=== PATIENT | female | born 1965 | race Caucasian/White ===

== ENCOUNTER 2022-08-08 11:49 | Inpatient (IN) | payer BC ==
[~2022-08-08] VITALS: Ht 162.6 cm; Wt 56.2 kg
[2022-08-08] MEDS ORDERED: IV NS 0.9% 1,000 ML BAG IV ONE (12:00)
--- NOTE | 2022-08-08 12:00 | NUR ---
BIBRA88 FROM HOME FOR PALITATIONS AND COFFEE GROUND EMESIS HR 170 ON SCENE, 12MG + 12MG ADENOSINE GIVEN BY EMS. PLACED IN BED, AAOX4, BREATHING EVEN AND UNLABORED SATURATING AT 94%RA, ATTACHED TO MONITOR SHOWS SINUS TACH. IA- 140
--- NOTE | 2022-08-08 12:10 | NUR ---
DUPLICATOR PUNCH SET UP OPERATOR AT BEDSIDE
--- NOTE | 2022-08-08 12:40 | NUR ---
X-RAY TECH AT BEDSIDE
[2022-08-08] MEDS ORDERED: LORAZEPAM INJ 2 MG/ML VIAL IV ONE (13:30)
[2022-08-08] MEDS ORDERED: PANTOPRAZOLE 80 MG in IV NS 0.9% 500 ML IV ONE (13:30)
--- NOTE | 2022-08-08 13:30 | NUR ---
MOVE SHEET SUBMITTED.
--- NOTE | 2022-08-08 13:30 | NUR ---
SWAB FOR COVID19 SENT TO LAB
[2022-08-08] MEDS ORDERED: LORAZEPAM INJ 2 MG/ML VIAL ONE (13:34)
[2022-08-08 13:40] LABS: ALANINE AMINOTRANSFERASE 27 U/L (12-78); ALBUMIN 3.1 g/dL (3.4-5.0); ALKALINE PHOSPHATASE 151 U/L (46-116); ASPARTATE AMINOTRANSFERASE 96 U/L (15-37); BILIRUBIN,DIRECT 0.2 mg/dL (0.0-0.2); BILIRUBIN,TOTAL 0.7 mg/dL (0.2-1.0); CARBON DIOXIDE 21 mmol/L (21-32); CHLORIDE 106 mmol/L (98-107); CREATININE 0.9 mg/dL (0.6-1.3); GLUCOSE 98 mg/dL (74-106); LIPASE 32 U/L (73-393); POTASSIUM 4.1 mmol/L (3.5-5.1); SODIUM SERUM 140 mmol/L (136-145); TOTAL PROTEIN, SERUM 6.9 g/dL (6.4-8.2); UREA NITROGEN, BLOOD 19 mg/dL (7-18)
[2022-08-08 13:56] LABS: BASOPHILS # (AUTO) 0.2 K/uL (0.0-0.2); BASOPHILS % (AUTO) 0.8 % (0.0-2.0); EOSINOPHILS % (AUTO) 0.1 % (0.0-6.0); HEMATOCRIT 40 % (33-45); HEMOGLOBIN 12.7 g/dL (11.5-14.8); LYMPHOCYTES # (AUTO) 0.4 K/uL (0.8-4.8); LYMPHOCYTES % (AUTO) 1.4 % (20.0-44.0); MEAN CORPUSCULAR HGB CONC 32 g/dl (31.0-36.0); MEAN CORPUSCULAR VOLUME 101 fL (82-100); MONOCYTES # (AUTO) 1.3 K/uL (0.1-1.30); MONOCYTES % (AUTO) 4.8 % (2.0-12.0); NEUTROPHILS % (AUTO) 92.9 % (43.0-81.0); PLATELET COUNT (AUTO) 343 K/uL (150-450); RED BLOOD CELL COUNT(AUTO) 3.95 MIL/uL (4.0-5.2); WHITE BLOOD COUNT (AUTO) 26.9 K/uL (4.3-11.0)
--- NOTE | 2022-08-08 13:58 | NUR ---
PATIENT TAKEN TO CT VIA MILLI
[2022-08-08] MEDS ORDERED: IV NS 0.9% 250 ML IV ONE (14:01)
[2022-08-08] MEDS ORDERED: IOHEXOL-350 100 ML VIAL IV ONE (14:01)
[2022-08-08] MEDS ORDERED: CEFTRIAXONE 1GM BAG (ER ONLY) 1 GM/50 ML PIGGYBACK IV ONE (14:30)
[2022-08-08] MEDS ORDERED: IV NS 0.9% 1,000 ML IV ONE (14:30)
[2022-08-08] MEDS ORDERED: DOXYCYCLINE 100 MG in IV D5W 100 ML IV ONE (14:30)
[2022-08-08] MEDS ORDERED: BUDE3CAP8 PO (15:03)
[2022-08-08] MEDS ORDERED: LIDO30AD10 TP (15:03)
[2022-08-08] MEDS ORDERED: BACL20TA PO (15:03)
[2022-08-08] MEDS ORDERED: TOPI50TA24 PO (15:03)
[2022-08-08] MEDS ORDERED: HYDR-3976 PO (15:03)
[2022-08-08] MEDS ORDERED: SERT100T PO (15:03)
[2022-08-08] MEDS ORDERED: CLON1TAB12 PO (15:03)
[2022-08-08] MEDS ORDERED: ESOM20CA PO (15:03)
--- NOTE | 2022-08-08 15:35 | NUR ---
[facility] CALLED SHIPMASTER PAGED.
--- NOTE | 2022-08-08 15:57 | NUR ---
ROOM ASSIGNED 102. ADMITTING AWARE.
[2022-08-08] MEDS ORDERED: OCTREOTIDE 50 MCG/ML AMPUL SQ ONE (16:00)
[2022-08-08] MEDS ORDERED: OCTREOTIDE 100 MCG/ML VIAL ONE (16:13)
--- NOTE | 2022-08-08 16:47 | NUR ---
report given to nurse Maher for prince
--- NOTE | 2022-08-08 17:31 | NUR ---
REPORT GIVEN TO JOVANY DRAFTER ELECTRONIC ROOM 259 FOR EVARISTO
--- NOTE | 2022-08-08 17:35 | NUR ---
PATIENT TRANSFERED AND ADMITTED PER ACLS PROTOCOL
--- NOTE | 2022-08-08 17:45 | NUR ---
ICU/RN PT ADMITED FROM ER,FROM HOME.HAD SVT,COFFEE GROUND EMESIS IN ER.HAS SEPSIS,PNA.PE.R/O OF GI BLEED.ON PROTONIX DRIP.HR -110-120 BPM .ON 2L N/C SAT O2-95%.AFEBRILE.NO PAIN REPORTED AT THIS TIME.LEFT IJ IV WITH PROTONIX DRIP.LABS REVIEW.PT IS VERY WEAK.SLEEPY.FAMILY AT BEDSIDE.
[2022-08-08 18:00] VITALS: BP_SYST 87; BP_SYST 94; BP_DIAS 55; BP_DIAS 56
[2022-08-08] MEDS ORDERED: ONDANSETRON HCL/PF 4 MG/2 ML VIAL IVP PRN (18:00)
[2022-08-08] MEDS ORDERED: Z GUARD REMEDY 4 OZ OINT TP PRN (18:00)
[2022-08-08] MEDS ORDERED: MAGNESIUM HYDROXIDE 30 ML UDC PO PRN (18:00)
[2022-08-08] MEDS ORDERED: MAG HYDROX/AL HYDROX/SIMETH 30 ML UDC PO PRN (18:00)
[2022-08-08] MEDS: IV NS 0.9% 1,000 ML IV PRN (18:17)
[2022-08-08] MEDS ORDERED: HEPARIN INFUSION/D5W 500 ML IV PRN (18:30)
--- NOTE | 2022-08-08 18:45 | NUR ---
ICU/RN DR NEIL SEEN THE PT .HEPARIN DRIP NON ACS PROTOCOL ORDERED.
[2022-08-08 19:00] VITALS: BP 93/49
[2022-08-08] MEDS ORDERED: NOREPINEPHRINE 8 MG in IV NS 0.9% 242 ML IV PRN (19:00)
[2022-08-08] MEDS ORDERED: NOREPINEPHRINE 8 MG in IV D5W 242 ML IV PRN (19:30)
[2022-08-08] MEDS ORDERED: HEPARIN SODIUM, PORCINE 5000 UNITS/1 ML VIAL IV ONE (19:30)
[2022-08-08] MEDS ORDERED: NOREPINEPHRINE 8 MG in IV D5W 492 ML IV PRN (19:30)
[2022-08-08 20:00] VITALS: BP 95/52
[2022-08-08] MEDS: CEFEPIME 1 GM in IV D5W 50 ML IV SCH (20:04)
[2022-08-08] MEDS: VANCOMYCIN 0.75 GM in IV D5W 250 ML IV SCH (20:34)
--- NOTE | 2022-08-08 20:44 | NUR ---
ICU/FURNITURE PAINTER @1939-CALLED NURSING SUP. ABOUT MIDLINE PLACEMENT, WOULD LIKE MIDLINE PLACED FIRST BEFORE STARTING HEPARIN DRIP. @2024-MIDLINE NURSE HERE TO PLACE LINE @2034-HEPARIN DRIP STARTED BY CAR LUBRICATOR NURSE. NEXT PTT IS IN 6 HRS
--- NOTE | 2022-08-08 20:55 | NUR ---
ICU/INTERNAL INVESTIGATOR CALLED THE SCALE AGENT ABOUT KEEPING THE PROTONIX DRIP GOING THIS WAS AN ER ORDER THERE IS NO DOCUMENTATION FROM MD IN NOTES TO KEEP GOING
[2022-08-08 21:00] VITALS: BP 91/57
--- NOTE | 2022-08-08 21:30 | NUR ---
ICU/PHOTOGRAPHIC SUPERVISOR PT'S AT BEDSIDE FOR AWHILE THEN WENT HOME.
[2022-08-08 22:00] VITALS: BP 93/54
--- NOTE | 2022-08-08 22:34 | NUR ---
ICU/BAKED AND GRAPHITE INSPECTOR PT VOIDED, COLLECTED UA AND URINE DRUG SCREEN. COLLECTED AND SENT TO LAB
[2022-08-08 23:00] VITALS: BP 91/57
[2022-08-09] VITALS (15 sets, daily range): BP systolic 100–127; BP diastolic 60–84
[2022-08-09 00:19] LABS: BILIRUBIN,URINE NEGATIVE (NEGATIVE); COLOR,URINE YELLOW (YELLOW); LEUKOCYTE ESTERASE ,URINE NEGATIVE (NEGATIVE); NITRITE, URINE POSITIVE (NEGATIVE); PH,URINE 5.5 (5.0-8.0); PROTEIN,URINE NEGATIVE (NEGATIVE); UGLUCOSE NEGATIVE (NEGATIVE); UROBILINOGEN,URINE 0.2 EU/dL (0.2)
[2022-08-09 00:59] LABS: BACTERIA,URINE Few /HPF (None Seen); SQUAMOUS EPITHELIAL CELL,UR Few /HPF (None Seen); WBC,URINE 0-2 /HPF (0-3)
--- NOTE | 2022-08-09 01:27 | NUR ---
ICU/PATTERNMAKER GRADER @2230-PT WOKE UP, STARTED ASKING FOR PAIN MEDICATION, CRYING WAS DIFFICULT TO UNDERSTAND. TRIED TO GIVE A LIDOCAINE PATCH HOWEVER PT REFUSED. @2320-PT CALLED TO TAKE HER HOME AMA, SAID NO. PT WANTS HER MEDS. @2330- CALLED ME TO ASK ABOUT WHAT MEDICATION CAN SHE GET. HAD ALREADY CALLED THE MAINTENANCE REPAIRER TO TALK AND ASSESS THE PT FOR WHAT COULD HELP IN THIS PT'S SITUATION. AND EXPLAIN MAINTENANCE REPAIRER WILL ORDER WHATEVER SHE WANTS. @0030-ERICA WAS FINISHING UP AN ADMISSION. THEN SHE WOULD BE UP TO SEE PT. @0100-ERICA SAW PT AND SAID TO GIVE ATIVAN AND THEN MORPHINE. THEN IN MORNING GET A PSYCH CONSULT. @0130-ORDERS RECIEVED AND CARRIED OUT.
[2022-08-09] MEDS ORDERED: LORAZEPAM INJ 2 MG/ML VIAL IV ONE (01:30)
[2022-08-09] MEDS ORDERED: MORPHINE SULFATE INJ 2 MG/ML DISP.SYRIN IV ONE (01:30)
--- NOTE | 2022-08-09 01:36 | NUR ---
ICU/STREET VENDOR ATIVAN GIVEN BY TEXTILES PRINTER NURSE, PT ASKED ABOUT MORPHINE AND WHEN CAN SHE GET IT. CHARGE NURSE SPOKE TO PT.
[2022-08-09] MEDS ORDERED: MORP15TA PO (01:55)
[2022-08-09] MEDS ORDERED: clonazePAM 1 MG TABLET PO ONE (03:30)
[2022-08-09 03:34] LABS: BASOPHILS # (AUTO) 0.1 K/uL (0.0-0.2); BASOPHILS % (AUTO) 0.3 % (0.0-2.0); EOSINOPHILS % (AUTO) 0.1 % (0.0-6.0); HEMATOCRIT 29 % (33-45); HEMOGLOBIN 9.5 g/dL (11.5-14.8); LYMPHOCYTES # (AUTO) 0.6 K/uL (0.8-4.8); LYMPHOCYTES % (AUTO) 2.2 % (20.0-44.0); MEAN CORPUSCULAR HGB CONC 33 g/dl (31.0-36.0); MEAN CORPUSCULAR VOLUME 100 fL (82-100); MONOCYTES # (AUTO) 1.2 K/uL (0.1-1.30); MONOCYTES % (AUTO) 4.3 % (2.0-12.0); NEUTROPHILS # (AUTO) 26.4 K/uL (1.8-8.9); NEUTROPHILS % (AUTO) 93.1 % (43.0-81.0); PLATELET COUNT (AUTO) 243 K/uL (150-450); RED BLOOD CELL COUNT(AUTO) 2.93 MIL/uL (4.0-5.2); WHITE BLOOD COUNT (AUTO) 28.4 K/uL (4.3-11.0)
[2022-08-09 03:57] LABS: ALBUMIN 2.3 g/dL (3.4-5.0); BILIRUBIN,TOTAL 0.6 mg/dL (0.2-1.0); CALCIUM, SERUM 8.2 mg/dL (8.5-10.1); CREATININE 0.5 mg/dL (0.6-1.3); MAGNESIUM 1.7 mg/dL (1.8-2.4); PHOSPHORUS 1.8 mg/dL (2.5-4.9); POTASSIUM 3.7 mmol/L (3.5-5.1); TOTAL PROTEIN, SERUM 5.3 g/dL (6.4-8.2)
--- NOTE | 2022-08-09 07:17 | NUR ---
ICU/COMPUTER PROCESSING SCHEDULER @0619 PT WOKE UP ASKED TO SEE THE DR. SAID THAT THE DR WAS SUPPOSED TO COME SEE HER. TRIED TO EXPLAIN THAT DR WILL COME LATER. THEN PT DEMANDED TO GO TO THE BATHROOM ASKED IF OF FOR A SOTO PT SAID YES. SOTO WAS PLACED. 2500ML CAME OUT. THEN PT YELLED THAT SHE WAS SUPPOSED TO PHYSICAL GO TO THE BATHROOM, EXPLAINED THAT PT IS UNABLE ON HER FEET AND UNABLE TO WALK. PT THEN WENT INTO A RANT ABOUT THE HOSPITAL IS HORRIBLE AND THAT I WAS A "FUCKING BITCH" PT CONTINUED ON FOR 15-20MINUTES. THEN JUST WALKED OUT OF ROOM, MADE CHARGE NURSE AWARE OF THIS . PT IS REQUESTING MORE PAIN MEDICATION, AND OTHER MEDICATIONS WHICH PT TAKES AT HOME. EXPLAIN THAT PT TAKES A LOT OF MEDICATION, EXPRESSED THAT PT SHOULD GO INTO A REHAB. AND THIS HAS GOTTEN OUT OF CONTROL. ENGINEER SPECIALIST SAID SHE DID NOT FEEL COMFORTABLE GIVING PT ALL THESE DIFFERENT MEDICATIONS BECAUSE SHE WOULD LIKE THEM TO VERIFY IF SHE TRULY GETS THESE PRESCRIBED TO HER.
[2022-08-09] MEDS ORDERED: HYDROCODONE/APAP 7.5/325MG 1 EACH TABLET PO PRN (08:00)
[2022-08-09] MEDS: clonazePAM 1 MG TABLET PO SCH ×3 (08:08→17:15)
[2022-08-09] MEDS: MORPHINE SULFATE IR 15 MG TABLET PO SCH ×4 (08:08→20:05)
[2022-08-09] MEDS: CEFEPIME 1 GM in IV D5W 50 ML IV SCH (08:08)
[2022-08-09] MEDS: TOPIRAMATE 100 MG TABLET PO SCH ×2 (08:08→17:14)
[2022-08-09] MEDS: IV NS 0.9% 1,000 ML IV PRN (08:20)
[2022-08-09] MEDS: VANCOMYCIN 0.75 GM in IV D5W 250 ML IV SCH (08:44)
[2022-08-09] MEDS ORDERED: BUDESONIDE 3 MG CAP.SR.24H PO SCH (09:00)
[2022-08-09] MEDS ORDERED: PANTOPRAZOLE 40 MG VIAL IV SCH (09:00)
[2022-08-09] MEDS: LIDOCAINE 5% (PATCH) 1 EA PATCH TP PRN (09:16)
[2022-08-09] MEDS: HYDROCODONE/APAP 5/325MG TABLET PO PRN ×3 (10:21→21:11)
[2022-08-09] MEDS: Magnesium 1GM/D5W 100ML PREMIX 100 ML IV SCH ×2 (10:47→13:44)
--- NOTE | 2022-08-09 11:23 | NUR ---
ICU/RN TALKED TO CARMEN REGARDING PT'S CONDITION.
--- NOTE | 2022-08-09 11:50 | NUR ---
RN NOTE RECEIVED REPORT FOR PATIENT FROM ICU ACCOMPANIED BY JOANNE FORTE.
[2022-08-09] MEDS ORDERED: NEUTRA PHOS 1 POWD.PACKET PO ONE (13:00)
[2022-08-09] MEDS: ACETAMINOPHEN 325 MG TABLET PO PRN (16:34)
[2022-08-09] MEDS: CEFEPIME 2 GM in IV D5W 100 ML IV SCH ×2 (16:34→20:06)
[2022-08-09] MEDS: VANCOMYCIN HCL 0.75 GM in IV D5W 250 ML IV SCH (17:10)
[2022-08-09] MEDS: SERTRALINE HCL 50 MG TABLET PO SCH (17:58)
--- NOTE | 2022-08-09 18:34 | NUR ---
RN CLOSING NOTE PATIENT IN BED ALERT AND ORIENTED X 4. PATIENT IS BREATHING ON NC 2 LPM, WITH 02 SAT OF 100%. IV ACCESS ON RIJ PATENT AND FLUSHED IV ACCESS ON PHIL RUNNING AT 75MLS/HR. ABLE TO MAKE NEEDS KNOWN. WILL ENDORSE CONTINUITY OF CARE TO CUTTING DEPARTMENT SUPERVISOR NURSE
--- NOTE | 2022-08-09 19:00 | NUR ---
RN NOTE Report received from Nellie RUBIO, patient in bed, AAO x 4, in no acute distress, saturation at 99% on 2L via NC, ST on the monitor, HR is 110. IV line at L IJ and PHIL midline patent and flushing, NS infusing at 75 ml/hr. Patient is continent and ambulatory, however, appears restless and keeps asking for her pain medications. Patient insists she only took 2 doses of clonazepam as opposed to three doses per EMAR. Reminded patient to stay on clear liwuid diet per orders. Safety measures in place, bed is locked and at lowest position, HOB elevated, call light within reach of patient. Will continue to monitor and reassess.
[2022-08-09] MEDS: PANTOPRAZOLE 40 MG VIAL IV SCH (20:08)
[2022-08-10 00:07] VITALS: BP 126/82
[2022-08-10] MEDS: VANCOMYCIN HCL 0.75 GM in IV D5W 250 ML IV SCH ×2 (00:12→08:09)
[2022-08-10] MEDS: HYDROCODONE/APAP 5/325MG TABLET PO PRN ×5 (01:14→18:54)
--- NOTE | 2022-08-10 02:52 | NUR ---
RN NOTE Patient very restless, unable to go to sleep. MD was made aware, order received for Clonazepam 1 mg x 1.
[2022-08-10] MEDS ORDERED: clonazePAM 1 MG TABLET PO ONE (03:00)
[2022-08-10 04:00] VITALS: BP 117/79
[2022-08-10] MEDS: CEFEPIME 2 GM in IV D5W 100 ML IV SCH ×3 (04:46→21:03)
--- NOTE | 2022-08-10 04:58 | NUR ---
RN NOTE Patient refused to sign consent for EGD, states she had the same procedure a year ago. Explained to patient importance of this procedure in determining the cause of bleeding. Patient states she wants to speak with MD before she signs consent form. Will endorse to AM shift RN.
[2022-08-10 06:20] LABS: CALCIUM, SERUM 8.5 mg/dL (8.5-10.1); CREATININE 0.5 mg/dL (0.6-1.3); PHOSPHORUS 2.2 mg/dL (2.5-4.9)
[2022-08-10 06:31] LABS: POTASSIUM 2.8 mmol/L (3.5-5.1)
--- NOTE | 2022-08-10 07:15 | NUR ---
RN NOTE AM labs resulted, Critical lab of [facility] 2.MD Sebastián made aware, however, no response received during change of shift. Relayed critical lab to Elinor RUBIO. Pt in bed, VS are wnl, stable on 2L via NC.
--- NOTE | 2022-08-10 07:44 | NUR ---
ICU/RN PT RECEIVED IN BED, AWAKE AND ALERT. PT ON 2L O2 NC WITH SOME LUNG PAIN ON THE RIGHT SIDE. LEFT UA MIDLINE AND LEFT IJ 18G IN PLACE RUNNING NS AT 75MLS/HR. PT COMPLAINING OF SEVERE PAIN, PT EDUCATED ON POC AND PAIN MEDICATION SCHEDULED THIS AM. RN TO BRING SCHEDULED MORNING MEDICATION SOON POSSIBLE. BED LOCKED AND IN LOWEST POSITION, CALL LIGHT WITHIN REACH, 3 SIDE RAILS UP.
--- NOTE | 2022-08-10 07:45 | NUR ---
RN NOTE PT REFUSES BED ALARM AT THIS TIME, STATING IT MAKES HER HEADACHE WORSE AND SHE CAN AMBULATE INDEPENDENTLY. PT EDUCATED ON RISKS OF AMBULATING BY HERSELF AND ASKED TO USE TO CALL LIGHT PRIOR TO GETTING UP
[2022-08-10 08:00] VITALS: BP 124/82
[2022-08-10] MEDS: PANTOPRAZOLE 40 MG VIAL IV SCH ×2 (08:08→16:02)
[2022-08-10] MEDS: MORPHINE SULFATE IR 15 MG TABLET PO SCH ×4 (08:09→21:03)
[2022-08-10] MEDS: clonazePAM 1 MG TABLET PO SCH ×3 (08:09→16:02)
[2022-08-10] MEDS: TOPIRAMATE 100 MG TABLET PO SCH ×2 (08:09→16:02)
[2022-08-10 08:55] LABS: BASOPHILS # (AUTO) 0.1 K/uL (0.0-0.2); BASOPHILS % (AUTO) 0.3 % (0.0-2.0); EOSINOPHILS % (AUTO) 0.3 % (0.0-6.0); HEMATOCRIT 28 % (33-45); LYMPHOCYTES # (AUTO) 0.3 K/uL (0.8-4.8); LYMPHOCYTES % (AUTO) 1.1 % (20.0-44.0); MEAN CORPUSCULAR HGB CONC 32 g/dl (31.0-36.0); MEAN CORPUSCULAR VOLUME 99 fL (82-100); MONOCYTES # (AUTO) 1.1 K/uL (0.1-1.30); MONOCYTES % (AUTO) 4.5 % (2.0-12.0); NEUTROPHILS # (AUTO) 23.2 K/uL (1.8-8.9); NEUTROPHILS % (AUTO) 93.8 % (43.0-81.0); PLATELET COUNT (AUTO) 241 K/uL (150-450); RED BLOOD CELL COUNT(AUTO) 2.79 MIL/uL (4.0-5.2); WHITE BLOOD COUNT (AUTO) 24.7 K/uL (4.3-11.0)
[2022-08-10] MEDS: NEUTRA PHOS 1 POWD.PACKET PO SCH ×2 (09:02→16:03)
[2022-08-10] MEDS: POTASSIUM CHLORIDE 20 MEQ TAB.PRT.SR PO SCH ×5 (09:02→13:41)
[2022-08-10] MEDS ORDERED: VANCOMYCIN 500 MG in IV D5W 100ml IV ONE (09:30)
--- NOTE | 2022-08-10 09:58 | NUR ---
RN NOTE PT REPORTING PAIN AND REQUESTING NORCO, PAIN 11/20. NORCO GIVEN
[2022-08-10] MEDS: BUDESONIDE 3 MG PO SCH (11:03)
[2022-08-10 12:00] VITALS: BP 136/79
[2022-08-10] MEDS: ENSURE CLEAR 237 ML LIQUID (MIX BERRY) PO SCH ×2 (12:02→17:31)
[2022-08-10] MEDS: BACLOFEN (10 MG) 10 MG TABLET PO SCH ×2 (12:02→16:03)
--- NOTE | 2022-08-10 13:30 | NUR ---
RN NOTE PT CALLING FOR HELP, DID NOT USE THE CALL LIGHT. PT STATES SHE TRIPPED ON HER WAY TO THE BATHROOM SHE REFUSED TO USE TO CALL LIGHT TO ASK FOR HELP AND CONTINUES TO REFUSE THE BED ALARM. PT STATES HITTING HER HEAD AND KNEE. NO BRUISE, REDNESS OT INDENTION NOTED. DR. SARY RICHTER, MADE AWARE OF INCIDENT. ORDER RECEIVED FOR HEAD CT, AND FOR PATIENT TO AGREE TO SAFETY MEASURES SHE CAN NOT CONTINUE TO PLACE HERSELF IN DANGER BY REFUSING TO CALL FOR HELP AND REFUSING BED ALARM. PT EDUCATED.
--- NOTE | 2022-08-10 15:00 | NUR ---
ICU/RN PT REQUESTING NORCO FOR HER UNMANAGED PAIN WITH HER SCHEDULED PAIN MEDICATION. NORCO GIVEN
--- NOTE | 2022-08-10 15:45 | NUR ---
RN NOTE PT VERY ANXIOUS AND RESTLESS, REPORTING UNCONTROLLED AND SEVERE PAIN OF 10/10, ACCELERATED BREATHING NOTED. PT PLACED ON 3L O2 NC, RN REMAINED WITH PT UNTIL PAIN MEDICATION DUE.
[2022-08-10 16:00] VITALS: BP 110/69
--- NOTE | 2022-08-10 16:30 | NUR ---
RN NOTE AT BEDSIDE, PT CALM AND COOPERATIVE AT THIS TIME.
[2022-08-10] MEDS: SERTRALINE HCL 50 MG TABLET PO SCH (17:05)
[2022-08-10] MEDS: VANCOMYCIN 1.25 GM in IV D5W 250 ML IV SCH (17:07)
--- NOTE | 2022-08-10 18:55 | NUR ---
RN NOTE PT ASKING FOR NORCO FOR HER HEADACHE, RATE PAIN 7/10. VITAL SIGNS STABLE. NORCO PO GIVEN
--- NOTE | 2022-08-10 19:05 | NUR ---
RN OPENING NOTES RECEIVED PATIENT ON BED, AWAKE, A/O X 3-4. AMBULATORY. PATIENT IS ANXIOUS, MILDLY AGITATED. ON NASAL CANULA @ 3LPM SATING AT 95%. NO S/S OF DISTRESS NOTED. NOTED WITH PHIL MID LINE AND LEFT IJ @ 18, FLUSHED WITH NS NO S/S OF INFILTRATION NOTED. ALL SAFETY PRECAUTION PROVIDED. BED IN LOWEST POSITION, LOCKED. CALL LIGHT WITH IN REACH.
[2022-08-10] MEDS: LIDOCAINE 5% (PATCH) 1 EA PATCH TP PRN (19:38)
[2022-08-10] MEDS: ACETAMINOPHEN 325 MG TABLET PO PRN (19:47)
[2022-08-10] MEDS: diphenhydrAMINE HCL ELIX 25 MG/10 ML UDC PO PRN (19:47)
--- NOTE | 2022-08-10 19:50 | NUR ---
RN NOTES PATIENT NOTED WITH TEMP- 99.7 FAHRENHEIT, COOLING MEASURES PROVIDED, ADMINISTER ACETAMINOPHEN 650MG . CONTINUE TO MONITOR.
[2022-08-10 20:00] VITALS: BP 117/79
--- NOTE | 2022-08-10 20:50 | NUR ---
RN NOTES TEMPERATURE RECHECKED, OBTAINED 99.1 FAHRENHEIT, CONTINUE COOLING MEASURES.
[2022-08-11] VITALS (9 sets, daily range): BP systolic 106–132; BP diastolic 56–90
[2022-08-11] MEDS: VANCOMYCIN 1.25 GM in IV D5W 250 ML IV SCH ×2 (01:16→09:00)
[2022-08-11] MEDS: HYDROCODONE/APAP 5/325MG TABLET PO PRN ×4 (01:19→18:30)
[2022-08-11] MEDS ORDERED: IV NS 0.9% 250 ML IV PRN (01:30)
[2022-08-11] MEDS: CEFEPIME 2 GM in IV D5W 100 ML IV SCH ×3 (04:24→20:10)
--- NOTE | 2022-08-11 07:00 | NUR ---
RECEIVED REPORT FROM NIGHTSGAFT JOANNE UNDERWOOD. WILL CONTINUE PLAN OF CARE AND ANTICIPATE NEEDS.
[2022-08-11 07:46] LABS: ALBUMIN 2.4 g/dL (3.4-5.0); BILIRUBIN,TOTAL 0.9 mg/dL (0.2-1.0); CALCIUM, SERUM 8.9 mg/dL (8.5-10.1); CREATININE 0.5 mg/dL (0.6-1.3); TOTAL PROTEIN, SERUM 6.8 g/dL (6.4-8.2)
[2022-08-11 07:47] LABS: POTASSIUM 2.6 mmol/L (3.5-5.1)
[2022-08-11] MEDS: ENSURE CLEAR 237 ML LIQUID (MIX BERRY) PO SCH ×3 (08:00→16:27)
[2022-08-11] MEDS: clonazePAM 1 MG TABLET PO SCH ×3 (08:38→16:26)
[2022-08-11] MEDS: POTASSIUM CHLORIDE 20 MEQ TAB.PRT.SR PO SCH ×5 (08:38→12:25)
[2022-08-11] MEDS: PANTOPRAZOLE 40 MG VIAL IV SCH ×2 (08:38→16:26)
[2022-08-11] MEDS: BACLOFEN (10 MG) 10 MG TABLET PO SCH ×3 (08:39→16:26)
[2022-08-11] MEDS: TOPIRAMATE 100 MG TABLET PO SCH ×2 (08:39→16:26)
[2022-08-11] MEDS: MORPHINE SULFATE IR 15 MG TABLET PO SCH ×4 (08:39→20:23)
[2022-08-11 09:11] LABS: BASOPHILS # (AUTO) 0.1 K/uL (0.0-0.2); BASOPHILS % (AUTO) 0.3 % (0.0-2.0); EOSINOPHILS % (AUTO) 0.5 % (0.0-6.0); HEMATOCRIT 29 % (33-45); HEMOGLOBIN 9.4 g/dL (11.5-14.8); LYMPHOCYTES # (AUTO) 0.5 K/uL (0.8-4.8); LYMPHOCYTES % (AUTO) 2.2 % (20.0-44.0); MEAN CORPUSCULAR HGB CONC 33 g/dl (31.0-36.0); MEAN CORPUSCULAR VOLUME 100 fL (82-100); MONOCYTES # (AUTO) 1.7 K/uL (0.1-1.30); MONOCYTES % (AUTO) 7.3 % (2.0-12.0); NEUTROPHILS # (AUTO) 20.3 K/uL (1.8-8.9); NEUTROPHILS % (AUTO) 89.7 % (43.0-81.0); PLATELET COUNT (AUTO) 260 K/uL (150-450); RED BLOOD CELL COUNT(AUTO) 2.87 MIL/uL (4.0-5.2); WHITE BLOOD COUNT (AUTO) 22.7 K/uL (4.3-11.0)
--- NOTE | 2022-08-11 09:28 | NUR ---
vancomycin held for trough of 25
[2022-08-11] MEDS: BUDESONIDE 3 MG PO SCH (09:31)
[2022-08-11] MEDS ORDERED: ANESTHESIA TRAY IN PYXIS 1 EA TRAY MC ONE (10:57)
[2022-08-11] MEDS: CHOLESTYRAMINE/ASPARTAME 4 G/PKT PACKET PO SCH ×2 (12:25→20:22)
--- NOTE | 2022-08-11 16:30 | NUR ---
ICE PACK GIVEN TO PATIENT FOR MIGRAINE PAIN.
[2022-08-11] MEDS ORDERED: VANCOMYCIN HCL 0.75 GM in IV D5W 250 ML IV SCH (17:00)
[2022-08-11] MEDS: SERTRALINE HCL 50 MG TABLET PO SCH (18:30)
--- NOTE | 2022-08-11 18:37 | NUR ---
RN CLOSING NOTES PATIENT REMAINS IN ROOM ON 3 LITERS NASAL CANULA. SINUS TACHYCARDIC ON TELE MONITOR. PATIENT AWAITING EDG SCHEDULED FOR 1800. PATIENT ALERT AND ORIENTED TIMES 3-4, POOR HISTORIAN. SKIN INTACT, PATIENT AMBULATORY WITH BATHROOM PRIVILEGES. AT BEDSIDE TO ASSIST WITH AMBULATION. PRN NORCO GIVEN AT 1830 FOR PATIENT REPORT OF HEAD PAIN 10/10. IV ACCESS' MAINTAINED ON LEFT UPPER ARM MIDLINE AND LEFT INTERNAL JUGULAR. SAFETY MEASURES IMPLEMENTED, WILL ENDORSE TO NIGHTSHIFT RN FOR CONTINUATION OF CARE.
--- NOTE | 2022-08-11 18:51 | NUR ---
PATIENT TAKEN BY SURGERY TEAM TO UNDERGO EDG.
[2022-08-11] MEDS: LIDOCAINE 5% (PATCH) 1 EA PATCH TP PRN (20:09)
[2022-08-11] MEDS: diphenhydrAMINE HCL ELIX 25 MG/10 ML UDC PO PRN (21:51)
[2022-08-11] MEDS: ACETAMINOPHEN 325 MG TABLET PO PRN (21:55)
[2022-08-12] VITALS: BP 105/63
[2022-08-12] MEDS: HYDROCODONE/APAP 5/325MG TABLET PO PRN (02:45)
[2022-08-12 04:00] VITALS: BP 117/76
[2022-08-12] MEDS: CEFEPIME 2 GM in IV D5W 100 ML IV SCH ×3 (04:59→20:20)
[2022-08-12] MEDS: diphenhydrAMINE HCL ELIX 25 MG/10 ML UDC PO PRN ×2 (05:12→21:39)
[2022-08-12] MEDS: ACETAMINOPHEN 325 MG TABLET PO PRN (05:12)
--- NOTE | 2022-08-12 06:40 | NUR ---
RN CLOSING NOTE PATIENT BACK FROM EGD AT 1999. POST OP VS TAKEN, WNL. A/OX4, WITH SOME FORGETFULNESS. 3L NC. SINUS RHTYHM/ SINUS TACHYCARDIA ON THE MONITOR. C/O PAIN PRN NOCRO, LIDOCAINE PATCH, TYLENOL AND BENADRYL GIVEN. PLAN FOR VAN THROUGH AT 1600. POSSIBLY RESTART ANTICOAGS, F/U BIOPSY FROM EGD. IV ABX GIVEN ORDERED. PATIENT WOULD LIKE TO SPEAK WITH MDS ABOUT PAIN MEDICATION REGIMEN.
[2022-08-12 06:58] LABS: BASOPHILS % (AUTO) 0.1 % (0.0-2.0); EOSINOPHILS % (AUTO) 1.3 % (0.0-6.0); HEMATOCRIT 29 % (33-45); HEMOGLOBIN 9.2 g/dL (11.5-14.8); LYMPHOCYTES # (AUTO) 0.6 K/uL (0.8-4.8); LYMPHOCYTES % (AUTO) 3.3 % (20.0-44.0); MEAN CORPUSCULAR HGB CONC 32 g/dl (31.0-36.0); MEAN CORPUSCULAR VOLUME 101 fL (82-100); MONOCYTES # (AUTO) 2.4 K/uL (0.1-1.30); MONOCYTES % (AUTO) 13.6 % (2.0-12.0); NEUTROPHILS # (AUTO) 14.3 K/uL (1.8-8.9); NEUTROPHILS % (AUTO) 81.7 % (43.0-81.0); PLATELET COUNT (AUTO) 298 K/uL (150-450); RED BLOOD CELL COUNT(AUTO) 2.81 MIL/uL (4.0-5.2); WHITE BLOOD COUNT (AUTO) 17.5 K/uL (4.3-11.0)
[2022-08-12 07:08] LABS: ALBUMIN 2.2 g/dL (3.4-5.0); BILIRUBIN,TOTAL 0.6 mg/dL (0.2-1.0); CALCIUM, SERUM 8.6 mg/dL (8.5-10.1); CREATININE 0.5 mg/dL (0.6-1.3); PHOSPHORUS 3.2 mg/dL (2.5-4.9); TOTAL PROTEIN, SERUM 6.6 g/dL (6.4-8.2)
--- NOTE | 2022-08-12 07:15 | NUR ---
SID RN NOTE Patient is resting in bed. Complained SOB, Spo2 is good with 2L of oxygen, RR ~ 18/min. Auscultation showed a bit of wheezing, but not in respiratory distress. Re-ensured her that because of her PE and pneumonia, she would subjectively feel that she could not breathe well and the situation is currently managed by medication and it takes time for the meds to take effect. Telemetry showed SR HR 105/min. Left UA ML is intact and patent. Call hester is placed within reach, bed is locked and placed in the lowest position. Will continue monitoring and care.
[2022-08-12 07:17] LABS: POTASSIUM 2.7 mmol/L (3.5-5.1)
[2022-08-12 08:00] VITALS: BP 107/73
[2022-08-12] MEDS: ENSURE CLEAR 237 ML LIQUID (MIX BERRY) PO SCH ×3 (08:32→17:37)
[2022-08-12] MEDS: CHOLESTYRAMINE/ASPARTAME 4 G/PKT PACKET PO SCH ×2 (08:36→21:25)
[2022-08-12] MEDS: PANTOPRAZOLE 40 MG/PACK PACK PO SCH ×2 (08:36→17:25)
[2022-08-12] MEDS: clonazePAM 1 MG TABLET PO SCH ×3 (08:36→17:29)
[2022-08-12] MEDS: FLUCONAZOLE (100 MG) 100 MG TABLET PO SCH (08:37)
[2022-08-12] MEDS: BACLOFEN (10 MG) 10 MG TABLET PO SCH ×3 (08:37→17:26)
[2022-08-12] MEDS: TOPIRAMATE 100 MG TABLET PO SCH ×2 (08:37→17:27)
[2022-08-12] MEDS: MORPHINE SULFATE IR 15 MG TABLET PO SCH ×4 (08:37→20:25)
[2022-08-12] MEDS: BUDESONIDE 3 MG PO SCH (08:38)
[2022-08-12 08:56] LABS: THYROID STIMULATING HORMONE 0.761 uIU/mL (0.358-3.74)
[2022-08-12] MEDS: POTASSIUM CHLORIDE 20 MEQ TAB.PRT.SR PO SCH ×5 (09:41→13:13)
[2022-08-12] MEDS ORDERED: ALBUTEROL HALF STRENGTH 1.25 MG/3 ML VIAL.NEB NEB SCH ×2 (10:00→10:23)
[2022-08-12] MEDS: APIXABAN 5 MG TABLET PO SCH ×2 (10:39→17:28)
[2022-08-12] MEDS: ALBUTEROL HALF STRENGTH 1.25 MG/3 ML VIAL.NEB NEB SCH ×4 (11:30→23:35)
[2022-08-12] MEDS: IPRATROPIUM NEB FS 0.5 MG/2.5 ML AMPUL.NEB NEB SCH ×4 (11:30→23:35)
[2022-08-12 12:00] VITALS: BP 148/83
[2022-08-12 16:45] VITALS: BP 111/82
--- NOTE | 2022-08-12 16:47 | NUR ---
RN NOTES RECEIVED PATIENT FROM CHANDAN, AWAKE IN BED, ON 2L OF O2 SATING WELL. ALL NEEDS ATTENDED TO AT THIS TIME. V/S STABLE.
[2022-08-12] MEDS: SERTRALINE HCL 50 MG TABLET PO SCH (17:25)
--- NOTE | 2022-08-12 19:06 | NUR ---
CAT OPERATOR CLOSING NOTES PATIENT IN BED, A/Ox4, OCCASIONALLY FORGETFUL STABLE ON 2L OF O2, NO S/S OF RESPIRATORY DISTRESS. ON TELE MONITORING SHOWING SINUS TACH HR 111, NO C/O OF CHEST PAIN OR DISCOMFORT. IV ACCESS LIJ #18 S/L AND PHIL MIDLINE S/L. INTACT AND PATENT. CONTINENT, AMB WITH STAND BY ASSIST, HAS BRP. SKIN INTACT. SAFETY MEASURES MAINTAINED: BED LOCKED AND IN LOWEST POSITION, CALL LIGHT WITHIN REACH, SIDE RAILS UPx3, BED ALARM ON. WILL ENDORSE TO NEXT SHIFT ANY EVARISTO.
--- NOTE | 2022-08-12 19:30 | NUR ---
SHEET HEATER OPENING NOTES - RECEIVED PATIENT IN BED WITH . A/O X4, ANXIOUS. BREATHING EVEN AND NON-LABORED, ON O2 AT 2LPM VIA NASAL CANULA. NOT IN APPARENT DISTRESS. C/O BURNING LEFT PARIETAL LOBE PAIN 10/20. ON TELE MONITOR READING SINUS TACHYCARDIA AT 106 BPM. HAS THE FF IV ACCESS: LEFT INTRA JUGULAR #18G AND LEFT UPPER ARM MIDLINE #18G, BOTH SALINE LOCKED. NO S/S OF INFILTRATION NOTED. SAFETY MEASURES IN PLACE: BED LOCKED AND IN LOW POSITION, SIDE RAILS UP X2, CALL LIGHT WITHIN REACH. WILL CONTINUE PLAN OF CARE.
[2022-08-12 20:00] VITALS: BP 104/65
[2022-08-12] MEDS: LIDOCAINE 5% (PATCH) 1 EA PATCH TP PRN (21:34)
[2022-08-13] VITALS: BP 115/76
--- NOTE | 2022-08-13 00:30 | NUR ---
PATIENT NOTED WITH DIARRHEA, LOOSE BROWN STOOL. HAD BM X3 TODAY PER REPORT, ONCE DURING MY SHIFT. NOTIFIED HOSPITALIST AND ORDERED C-DIFF. NOTED AND CARRIED OUT. INSTRUCTED PATIENT TO USE THE BED MIRANDA, VERBALIZED UNDERSTANDING.
[2022-08-13] MEDS ORDERED: LORAZEPAM INJ 2 MG/ML VIAL IV ONE (01:00)
--- NOTE | 2022-08-13 01:03 | NUR ---
NOTIFIED HOSPITALIST HAMIDA THAT PATIENT IS C/O CHEST PAIN AND SOB. ALL VS ARE WNL. PATIENT NOTED TO BE CRYING AND VERY ANXIOUS, HR 126. ORDERED ATIVAN 1MG IVP ONCE, EKG AND TROPONIN. NOTED AND CARRIED OUT.
[2022-08-13] MEDS: ALBUTEROL HALF STRENGTH 1.25 MG/3 ML VIAL.NEB NEB SCH ×4 (02:59→15:30)
[2022-08-13] MEDS: IPRATROPIUM NEB FS 0.5 MG/2.5 ML AMPUL.NEB NEB SCH ×4 (02:59→15:30)
[2022-08-13] MEDS: diphenhydrAMINE HCL ELIX 25 MG/10 ML UDC PO PRN (03:42)
[2022-08-13 04:00] VITALS: BP 117/78
[2022-08-13] MEDS: CEFEPIME 2 GM in IV D5W 100 ML IV SCH ×2 (04:21→12:10)
--- NOTE | 2022-08-13 06:56 | NUR ---
WORKFORCE PLANNER CLOSING NOTES - PATIENT IN BED RESTING, EASY TO AROUSE. ABLE TO VERBALIZE NEEDS. WEARING SUNGLASSES ALL THE TIME. SEVERE ANXIETY NOTED. PERIODS OF CONFUSION NOTED. NO SOB OR AT THIS TIME. SATURATING WELL IN 2LPM. NO CARDIAC OR RESPIRATORY DISTRESS AT THIS TIME. AFEBRILE. ON TELE MONITOR READING SINUS RHYTHM AT 96 BPM. IV ACCESS INTACT, PATENT AND FLUSHING. PATIENT IS AMBULATORY WITH SBA, NEEDS MINIMAL ASSISTANCE WITH ADLS. ALL DUE MEDS GIVEN AND NEEDS ATTENDED. PATIENT INSISTS ON SPEAKING WITH HER EDGE SANDER. SAFETY MEASURES MAINTAINED. WILL ENDORSE TO NEXT SHIFT FOR EVARISTO.
--- NOTE | 2022-08-13 07:41 | NUR ---
RN NOTE PATIENT REFUSED BREATHING TREATMENT BY RT AT THIS TIME. PATIENT STATED SHE WAS IN TOO MUCH PAIN TO TOLERATE.
[2022-08-13 07:50] LABS: BASOPHILS # (AUTO) 0.1 K/uL (0.0-0.2); BASOPHILS % (AUTO) 0.4 % (0.0-2.0); EOSINOPHILS % (AUTO) 1.1 % (0.0-6.0); HEMATOCRIT 28 % (33-45); HEMOGLOBIN 9.1 g/dL (11.5-14.8); LYMPHOCYTES % (AUTO) 6.1 % (20.0-44.0); MEAN CORPUSCULAR HGB CONC 33 g/dl (31.0-36.0); MEAN CORPUSCULAR VOLUME 98 fL (82-100); MONOCYTES # (AUTO) 2.5 K/uL (0.1-1.30); MONOCYTES % (AUTO) 15.3 % (2.0-12.0); NEUTROPHILS # (AUTO) 12.7 K/uL (1.8-8.9); NEUTROPHILS % (AUTO) 77.1 % (43.0-81.0); PLATELET COUNT (AUTO) 367 K/uL (150-450); RED BLOOD CELL COUNT(AUTO) 2.79 MIL/uL (4.0-5.2); WHITE BLOOD COUNT (AUTO) 16.5 K/uL (4.3-11.0)
[2022-08-13 07:51] LABS: ALBUMIN 2.2 g/dL (3.4-5.0); BILIRUBIN,TOTAL 0.5 mg/dL (0.2-1.0); CALCIUM, SERUM 9.3 mg/dL (8.5-10.1); CREATININE 0.5 mg/dL (0.6-1.3); TOTAL PROTEIN, SERUM 6.8 g/dL (6.4-8.2)
[2022-08-13] MEDS: ENSURE CLEAR 237 ML LIQUID (MIX BERRY) PO SCH ×3 (07:52→15:58)
[2022-08-13 08:00] VITALS: BP 107/70
[2022-08-13] MEDS: BUDESONIDE 3 MG PO SCH (08:28)
[2022-08-13] MEDS: PANTOPRAZOLE 40 MG/PACK PACK PO SCH ×2 (08:28→16:27)
[2022-08-13] MEDS: clonazePAM 1 MG TABLET PO SCH ×3 (08:29→16:26)
[2022-08-13] MEDS: MORPHINE SULFATE IR 15 MG TABLET PO SCH ×3 (08:29→16:26)
[2022-08-13] MEDS: APIXABAN 5 MG TABLET PO SCH ×2 (08:34→16:26)
[2022-08-13] MEDS: FLUCONAZOLE (100 MG) 100 MG TABLET PO SCH (08:43)
[2022-08-13] MEDS: CHOLESTYRAMINE/ASPARTAME 4 G/PKT PACKET PO SCH (08:44)
[2022-08-13] MEDS: TOPIRAMATE 100 MG TABLET PO SCH ×2 (08:44→16:27)
[2022-08-13] MEDS: BACLOFEN (10 MG) 10 MG TABLET PO SCH ×3 (08:44→16:27)
[2022-08-13] MEDS: POTASSIUM CHLORIDE 20 MEQ TAB.PRT.SR PO SCH ×5 (08:46→13:03)
[2022-08-13 12:00] VITALS: BP 105/63
[2022-08-13 16:00] VITALS: BP 112/72
--- NOTE | 2022-08-13 17:50 | NUR ---
RN NOTE PATIENT WAS DISCHARGED WITH OXYGEN TANK AND HOME OXYGEN STATIONARY TANK. PATIENT AND WERE EDUCATED ON HOW TO TURN EQUIPMENT ON AND OFF. IV ACCESS ON PHIL MIDLINE FLUSHED AND INTACT FOR HOME HEALTH IV ANTIBIOTICS. HOME HEALTH NURSE WILL FOLLOW UP TOMORROW. PATIENT SIGNED DISCHARGE INSTRUCTIONS, RIJ ACCESS REMOVED. ID BAND REMOVED, TELEBOX REMOVED. PATIENT VERBALIZED WHO TO CONTACT IF SHE NEEDS TO BE REINSTRUCTED ON OXYGEN TANK. PICKED UP PATIENT IN FRONT LOBBY WHERE SHE WAS ESCORTED VIA WHEELCHAIR WITH VÍCTOR FENG, AND JOANNE WHITTAKER.
== END 2022-08-13 18:10 | disposition home health service (06) | DRG 871 ==
LOC: ER 11:53 → EDBD 16:47 → TELE1 16:47 → ICU 17:34 → TELE-TD 08-09 11:48 → TELE1 08-12 21:36
PROVIDERS: ADMIT Internal Medicine
PROC: 05HC33Z Insertion of Infusion Device into Left Basilic Vein, Percutaneous Approach (ICD-10-PCS; principal; 2022-08-08)
PROC: 0DB58ZX Excision of Esophagus, Via Natural or Artificial Opening Endoscopic, Diagnostic (ICD-10-PCS; 2022-08-11)
DX: A41.9 Sepsis, unspecified organism (principal); G93.41 Metabolic encephalopathy; J96.01 Acute respiratory failure with hypoxia; J69.0 Pneumonitis due to inhalation of food and vomit; I26.99 Other pulmonary embolism without acute cor pulmonale; B37.81 Candidal esophagitis; I47.1 Supraventricular tachycardia; K92.2 Gastrointestinal hemorrhage, unspecified; E87.20 Acidosis, unspecified; K29.70 Gastritis, unspecified, without bleeding; K44.9 Diaphragmatic hernia without obstruction or gangrene; G43.909 Migraine, unspecified, not intractable, without status migrainosus; G50.0 Trigeminal neuralgia; E87.6 Hypokalemia; D64.9 Anemia, unspecified; F41.0 Panic disorder [episodic paroxysmal anxiety]; F41.1 Generalized anxiety disorder; E83.39 Other disorders of phosphorus metabolism; G89.4 Chronic pain syndrome; J45.909 Unspecified asthma, uncomplicated; Z91.81 History of falling; Z20.822 Contact with and (suspected) exposure to COVID-19; Z79.01 Long term (current) use of anticoagulants; Z79.899 Other long term (current) drug therapy
CPT/HCPCS: 36415; 70450-TC; 71045-TC; 80048-TC; 80053-TC; 80076-TC; 80202-TC; 81001; 83605-TC; 83690-TC; 83735-TC; 84100-TC; 84439-TC; 84443-TC; 84484-TC; 84702-TC; 85025-TC; 85730-TC; 87040-TC; 87081-TC; 87086-TC; 87806; 93307-TC; 93970-TC; 94799-TC; 97110-TC; 97116-TC; A4223; C9113; C9803; G0378; J0692; J0696; J1644; J2060; J2270; J2354; J2704; J3370; J3475; J3490; J7030; J7040; J7050; J7060; Q0163; Q9967

== ENCOUNTER 2022-12-22 18:34 | Emergency (ER) | payer BC ==
[~2022-12-22] VITALS: Ht 160 cm; Wt 63.5 kg
[~2022-12-22 18:34] MED LIST: BACL20TA PO; BUDE3CAP8 PO; CLON1TAB12 PO; ESOM20CA PO; HYDR-3976 PO; LIDO30AD10 TP; MORP15TA PO; SERT100T PO; TOPI50TA24 PO
[2022-12-22] MEDS ORDERED: MORPHINE SULFATE INJ 2 MG/ML DISP.SYRIN IV ONE (19:00)
[2022-12-22] MEDS ORDERED: IV NS 0.9% 1,000 ML BAG IV ONE (19:00)
[2022-12-22 19:35] VITALS: BP 152/79; TEMP 98.7; O2SAT 97
[2022-12-22 19:42] LABS: CALCIUM, SERUM 8.9 mg/dL (8.5-10.1); CARBON DIOXIDE 23 mmol/L (21-32); CHLORIDE 95 mmol/L (98-107); CREATININE 0.6 mg/dL (0.6-1.3); GLUCOSE 136 mg/dL (74-106); POTASSIUM 3.8 mmol/L (3.5-5.1); SODIUM SERUM 128 mmol/L (136-145); UREA NITROGEN, BLOOD 5 mg/dL (7-18)
[2022-12-22] MEDS ORDERED: MORPHINE SULFATE INJ 4 MG/ML DISP.SYRIN ONE (19:42)
[2022-12-22 20:11] LABS: BASOPHILS % (AUTO) 0.3 % (0.0-2.0); EOSINOPHILS % (AUTO) 0.5 % (0.0-6.0); HEMATOCRIT 31 % (33-45); HEMOGLOBIN 10.4 g/dL (11.5-14.8); LYMPHOCYTES % (AUTO) 13.2 % (20.0-44.0); MEAN CORPUSCULAR HEMOGLOBIN 29 PG (26.0-33.0); MEAN CORPUSCULAR HGB CONC 34 g/dl (31.0-36.0); MEAN CORPUSCULAR VOLUME 87 fL (82-100); MONOCYTES # (AUTO) 0.7 K/uL (0.1-1.30); MONOCYTES % (AUTO) 8.8 % (2.0-12.0); NEUTROPHILS % (AUTO) 77.2 % (43.0-81.0); PLATELET COUNT (AUTO) 378 K/uL (150-450); RED BLOOD CELL COUNT(AUTO) 3.58 MIL/uL (4.0-5.2); RED CELL DISTRIBUTION WIDTH 16.7 % (11.5-15.0); WHITE BLOOD COUNT (AUTO) 7.8 K/uL (4.3-11.0)
[2022-12-22] MEDS ORDERED: PROCHLORPERAZINE EDISYLATE 10 MG/2 ML VIAL IVP ONE (21:00)
[2022-12-22] MEDS ORDERED: diphenhydrAMINE HCL 50 MG/ML VIAL IV ONE (21:00)
[2022-12-22] MEDS ORDERED: KETOROLAC TROMETHAMINE INJ 30 MG/ML VIAL IV ONE (21:00)
[2022-12-22] MEDS ORDERED: IV NS 0.9% 250 ML IV ONE (21:01)
[2022-12-22] MEDS ORDERED: IOHEXOL-350 100 ML VIAL IV ONE (21:01)
[2022-12-22] MEDS ORDERED: diphenhydrAMINE HCL 50 MG/ML VIAL ONE (21:27)
[2022-12-22] MEDS ORDERED: KETOROLAC TROMETHAMINE 15 MG/ML VIAL ONE (21:28)
[2022-12-22] MEDS ORDERED: PROCHLORPERAZINE EDISYLATE 10 MG/2 ML VIAL ONE (21:28)
== END 2022-12-23 04:03 | disposition home or self-care (01) ==
LOC: ER 18:49
DX: G50.0 Trigeminal neuralgia (principal); R51.9 Headache, unspecified; R00.2 Palpitations; Z79.899 Other long term (current) drug therapy
CPT/HCPCS: 99285; 70496; 96374; 96375; 71045; 93005 ×2; 85025; 80048; 85378; 36415; 84484; 70450; J0780; J1200; J2270; J7030; J7050; Q9967; J1885

== ENCOUNTER 2023-11-04 18:53 | Emergency (ER) | payer BC ==
[~2023-11-04] VITALS: Ht 167.6 cm; Wt 49.9 kg
[2023-11-04 18:58] VITALS: BP 139/88; TEMP 98.7; O2SAT 100
== END 2023-11-04 19:40 | disposition home or self-care (01) ==
LOC: ER 18:55
DX: G50.0 Trigeminal neuralgia (principal); G43.909 Migraine, unspecified, not intractable, without status migrainosus; G89.29 Other chronic pain

== ENCOUNTER 2024-04-06 00:12 | Emergency (ER) | payer BC ==
[~2024-04-06] VITALS: Ht 167.6 cm; Wt 48.5 kg
[2024-04-06 00:34] VITALS: TEMP 98.2
[2024-04-06] MEDS ORDERED: LORAZEPAM INJ 2 MG/ML VIAL ONE (00:58)
[2024-04-06] MEDS: IV NS 0.9% 1,000 ML BAG IV ONE (01:00)
[2024-04-06] MEDS: LORAZEPAM INJ 2 MG/ML VIAL IV ONE (01:00)
[2024-04-06 01:18] LABS: BASOPHILS % (AUTO) 1.1 % (0.0-2.0); EOSINOPHILS # (AUTO) 0.1 K/uL (0.0-0.7); EOSINOPHILS % (AUTO) 3.4 % (0.0-6.0); HEMATOCRIT 32 % (33-45); HEMOGLOBIN 10.9 g/dL (11.5-14.8); LYMPHOCYTES # (AUTO) 1.5 K/uL (0.8-4.8); LYMPHOCYTES % (AUTO) 35.2 % (20.0-44.0); MEAN CORPUSCULAR HEMOGLOBIN 31 PG (26.0-33.0); MEAN CORPUSCULAR HGB CONC 34 g/dl (31.0-36.0); MEAN CORPUSCULAR VOLUME 91 fL (82-100); MONOCYTES # (AUTO) 0.7 K/uL (0.1-1.30); MONOCYTES % (AUTO) 15.9 % (2.0-12.0); NEUTROPHILS # (AUTO) 1.8 K/uL (1.8-8.9); NEUTROPHILS % (AUTO) 44.4 % (43.0-81.0); PLATELET COUNT (AUTO) 321 K/uL (150-450); RED BLOOD CELL COUNT(AUTO) 3.53 MIL/uL (4.0-5.2); RED CELL DISTRIBUTION WIDTH 14.9 % (11.5-15.0); WHITE BLOOD COUNT (AUTO) 4.2 K/uL (4.3-11.0)
[2024-04-06 01:44] LABS: CALCIUM, SERUM 8.7 mg/dL (8.5-10.1); CARBON DIOXIDE 24 mmol/L (21-32); CHLORIDE 102 mmol/L (98-107); CREATININE 0.4 mg/dL (0.6-1.3); GLUCOSE 94 mg/dL (74-106); SODIUM SERUM 136 mmol/L (136-145); UREA NITROGEN, BLOOD 5 mg/dL (7-18)
[2024-04-06 01:53] LABS: ALANINE AMINOTRANSFERASE 17 U/L (12-78); ALBUMIN 3.1 g/dL (3.4-5.0); ALKALINE PHOSPHATASE 112 U/L (46-116); ASPARTATE AMINOTRANSFERASE 39 U/L (15-37); BILIRUBIN,DIRECT 0.1 mg/dL (0.0-0.2); BILIRUBIN,TOTAL 0.3 mg/dL (0.2-1.0); NT-PRO BNP 144 pg/mL (0-125)
[2024-04-06 02:09] LABS: EOSINOPHILS % (MANUAL) 1 % (0-4); LYMPHOCYTES % (MANUAL) 41 % (16-48); METAMYELOCYTES % 1 % (0-0); MONOCYTES % (MANUAL) 15 % (0-11.0); NEUTROPHILS % (MANUAL) 42 (42-76); PLATELET ESTIMATE ADEQUATE
[2024-04-06 02:12] LABS: ANISOCYTOSIS 1+
[2024-04-06 02:25] VITALS: BP 112/78; O2SAT 98
== END 2024-04-06 02:26 | disposition home or self-care (01) ==
LOC: ER 00:15
DX: R51.9 Headache, unspecified (principal); R07.89 Other chest pain; R20.0 Anesthesia of skin; R00.0 Tachycardia, unspecified; F41.9 Anxiety disorder, unspecified; Z79.01 Long term (current) use of anticoagulants; Z79.899 Other long term (current) drug therapy; Z86.711 Personal history of pulmonary embolism
CPT/HCPCS: 99285; 70450; 71045; 93005 ×2; 85025; 80048; 80076; 85378; 36415; 84484; 83880; 85007; J2060

== ENCOUNTER 2024-07-04 20:10 | Inpatient (IN) | payer BC ==
[~2024-07-04] VITALS: Ht 170.2 cm; Wt 54.0 kg
[2024-07-04] MEDS ORDERED: IV NS 0.9% 1,000 ML BAG IV ONE (20:30)
[2024-07-04 20:52] LABS: BASOPHILS % (AUTO) 0.7 % (0.0-2.0); EOSINOPHILS # (AUTO) 0.1 K/uL (0.0-0.7); EOSINOPHILS % (AUTO) 1.6 % (0.0-6.0); HEMATOCRIT 30 % (33-45); LYMPHOCYTES # (AUTO) 0.6 K/uL (0.8-4.8); LYMPHOCYTES % (AUTO) 12.4 % (20.0-44.0); MEAN CORPUSCULAR HEMOGLOBIN 30 PG (26.0-33.0); MEAN CORPUSCULAR HGB CONC 34 g/dl (31.0-36.0); MEAN CORPUSCULAR VOLUME 91 fL (82-100); MONOCYTES # (AUTO) 0.4 K/uL (0.1-1.30); MONOCYTES % (AUTO) 7.1 % (2.0-12.0); NEUTROPHILS # (AUTO) 4.1 K/uL (1.8-8.9); NEUTROPHILS % (AUTO) 78.2 % (43.0-81.0); PLATELET COUNT (AUTO) 386 K/uL (150-450); RED CELL DISTRIBUTION WIDTH 17.8 % (11.5-15.0); WHITE BLOOD COUNT (AUTO) 5.2 K/uL (4.3-11.0)
[2024-07-04] MEDS: IV LR 1000 ML 1,000 ML BAG IV ONE (21:10)
[2024-07-04] MEDS ORDERED: LORAZEPAM INJ 2 MG/ML VIAL ONE ×2 (21:41→23:08)
[2024-07-04 21:42] LABS: CARBON DIOXIDE 30 mmol/L (21-32); CHLORIDE 106 mmol/L (98-107); CREATININE 0.6 mg/dL (0.6-1.3); GLUCOSE 151 mg/dL (74-106); POTASSIUM 3.9 mmol/L (3.5-5.1); SODIUM SERUM 144 mmol/L (136-145); UREA NITROGEN, BLOOD 4 mg/dL (7-18)
[2024-07-04 21:47] LABS: ALANINE AMINOTRANSFERASE 15 U/L (12-78); ALBUMIN 3.3 g/dL (3.4-5.0); ALKALINE PHOSPHATASE 134 U/L (46-116); ASPARTATE AMINOTRANSFERASE 23 U/L (15-37); BILIRUBIN,DIRECT 0.2 mg/dL (0.0-0.2); BILIRUBIN,TOTAL 0.3 mg/dL (0.2-1.0)
[2024-07-04 21:48] LABS: ALCOHOL, BLOOD < 3 mg/dL (0-10)
[2024-07-04] MEDS: LORAZEPAM INJ 2 MG/ML VIAL IV ONE (22:08)
[2024-07-04] MEDS ORDERED: MORP30CP13 PO (22:55)
[2024-07-04] MEDS ORDERED: APIX5TAB PO (22:55)
[2024-07-04] MEDS ORDERED: LAMO25TA5 PO (22:55)
[2024-07-04] MEDS ORDERED: ONDANSETRON HCL/PF 4 MG/2 ML VIAL IVP PRN (23:00)
[2024-07-04] MEDS: MORPHINE SULFATE SR 30 MG TABLET.SA PO SCH (23:00)
[2024-07-04] MEDS: TOPIRAMATE 25 MG TABLET PO SCH (23:00)
[2024-07-04] MEDS ORDERED: MAG HYDROX/AL HYDROX/SIMETH 30 ML UDC PO PRN (23:00)
[2024-07-04] MEDS ORDERED: HYDROCODONE/APAP 7.5/325MG 1 EACH TABLET PO PRN (23:00)
[2024-07-04] MEDS: BACLOFEN (10 MG) 10 MG TABLET PO ONE (23:00)
[2024-07-04] MEDS: LORAZEPAM 4 MG/ML VIAL IV ONE (23:20)
[2024-07-04] MEDS: HYDROMORPHONE 1 MG/1 ML DISP.SYRIN IV ONE (23:20)
[2024-07-04 23:35] VITALS: BP 107/71; TEMP 98.6; O2SAT 98
[2024-07-05] MEDS: SERTRALINE HCL 50 MG TABLET PO SCH (03:10)
[2024-07-05] MEDS: LamoTRIgine 25 MG TABLET PO SCH ×2 (03:10→17:39)
[2024-07-05] MEDS: clonazePAM 1 MG TABLET PO SCH (03:10)
[2024-07-05 04:00] VITALS: BP 138/88; TEMP 98.4; O2SAT 95
[2024-07-05] MEDS: HYDROMORPHONE 1 MG/1 ML DISP.SYRIN IV PRN (04:15)
[2024-07-05 06:44] LABS: BASOPHILS # (AUTO) 0.1 K/uL (0.0-0.2); BASOPHILS % (AUTO) 0.6 % (0.0-2.0); EOSINOPHILS % (AUTO) 0.3 % (0.0-6.0); HEMATOCRIT 29 % (33-45); HEMOGLOBIN 9.4 g/dL (11.5-14.8); LYMPHOCYTES # (AUTO) 0.2 K/uL (0.8-4.8); LYMPHOCYTES % (AUTO) 1.4 % (20.0-44.0); MEAN CORPUSCULAR HEMOGLOBIN 29 PG (26.0-33.0); MEAN CORPUSCULAR HGB CONC 32 g/dl (31.0-36.0); MEAN CORPUSCULAR VOLUME 91 fL (82-100); MONOCYTES # (AUTO) 0.9 K/uL (0.1-1.30); MONOCYTES % (AUTO) 5.9 % (2.0-12.0); NEUTROPHILS % (AUTO) 91.8 % (43.0-81.0); PLATELET COUNT (AUTO) 318 K/uL (150-450); RED CELL DISTRIBUTION WIDTH 16.9 % (11.5-15.0); WHITE BLOOD COUNT (AUTO) 15.2 K/uL (4.3-11.0)
[2024-07-05 07:12] LABS: CALCIUM, SERUM 9.3 mg/dL (8.5-10.1); CREATININE 0.3 mg/dL (0.6-1.3); MAGNESIUM 1.9 mg/dL (1.8-2.4); PHOSPHORUS 3.1 mg/dL (2.5-4.9); POTASSIUM 3.4 mmol/L (3.5-5.1)
[2024-07-05] MEDS ORDERED: ESOMEPRAZOLE MAG TRIHYDRATE 20 MG CAPSULE.DR PO SCH (07:30)
[2024-07-05 08:00] VITALS: BP 115/69; TEMP 99.7; O2SAT 97
[2024-07-05] MEDS: PANTOPRAZOLE 40 MG TABLET.DR PO SCH (08:18)
[2024-07-05] MEDS: APIXABAN 5 MG TABLET PO SCH (08:18)
[2024-07-05] MEDS: BUDESONIDE 3 MG CAP.SR.24H PO SCH (08:19)
[2024-07-05] MEDS ORDERED: BACLOFEN (10 MG) 10 MG TABLET PO SCH (10:00)
[2024-07-05] MEDS: POTASSIUM CHLORIDE 20 MEQ TAB.PRT.SR PO SCH (10:22)
[2024-07-05] MEDS: IV NS 0.9% 1,000 ML IV PRN (11:06)
[2024-07-05] MEDS: BACLOFEN (10 MG) 10 MG TABLET PO SCH (11:36)
[2024-07-05] MEDS: PREGABALIN 25 MG CAPSULE PO SCH (11:36)
[2024-07-05] MEDS: LIDOCAINE 5% (PATCH) 1 EA PATCH TP PRN (11:36)
[2024-07-05 12:00] VITALS: BP 115/77; TEMP 96.8; O2SAT 95
[2024-07-05] MEDS: methylPREDNISolone SOD SUCC 125 MG/2ML VIAL IV SCH (12:26)
[2024-07-05] MEDS ORDERED: MISCELLANEOUS MED 1 EA EA XX ONE (12:30)
[2024-07-05 12:31] LABS: AMPHETAMINE, URINE NEGATIVE (NEGATIVE); BARBITURATE, URINE NEGATIVE (NEGATIVE); BENZODIAZEPINE, URINE NEGATIVE (NEGATIVE); CANNABINOID, URINE NEGATIVE (NEGATIVE); COCCAINE, URINE NEGATIVE (NEGATIVE); PHENCYCLIDINE SCREEN,URINE NEGATIVE (NEGATIVE)
[2024-07-05 12:36] LABS: OPIATE, URINE POSITIVE (NEGATIVE)
[2024-07-05] MEDS ORDERED: LIDOCAINE 5% OINT 35.44 GM TUBE TP PRN (13:00)
[2024-07-05] MEDS: KEY,NONCONTROL,TO KEEP IN PYXI 1 EA MC ONE (15:03)
[2024-07-05] MEDS: diphenhydrAMINE HCL 50 MG CAPSULE PO PRN (15:37)
[2024-07-05 16:00] VITALS: BP 125/87; TEMP 98.2; O2SAT 98
[2024-07-05 19:50] LABS: THYROID STIMULATING HORMONE 0.2 uIU/mL (0.358-3.74)
[2024-07-05 20:19] VITALS: BP 99/74; TEMP 98.6; O2SAT 96
[2024-07-05] MEDS ORDERED: KEY,NONCONTROL,TO KEEP IN PYXI 1 EA MC ONE (22:47)
[2024-07-06 03:56] VITALS: BP 111/69; TEMP 97.7; O2SAT 96
[2024-07-06] MEDS ORDERED: KEY,NONCONTROL,TO KEEP IN PYXI 1 EA MC ONE ×3 (06:33→21:30)
[2024-07-06 06:45] LABS: BASOPHILS % (AUTO) 0.3 % (0.0-2.0); EOSINOPHILS # (AUTO) 0.1 K/uL (0.0-0.7); EOSINOPHILS % (AUTO) 0.8 % (0.0-6.0); HEMATOCRIT 27 % (33-45); LYMPHOCYTES # (AUTO) 1.3 K/uL (0.8-4.8); LYMPHOCYTES % (AUTO) 11.4 % (20.0-44.0); MEAN CORPUSCULAR HEMOGLOBIN 31 PG (26.0-33.0); MEAN CORPUSCULAR HGB CONC 33 g/dl (31.0-36.0); MEAN CORPUSCULAR VOLUME 92 fL (82-100); MONOCYTES # (AUTO) 1.1 K/uL (0.1-1.30); MONOCYTES % (AUTO) 9.3 % (2.0-12.0); NEUTROPHILS # (AUTO) 8.9 K/uL (1.8-8.9); NEUTROPHILS % (AUTO) 78.2 % (43.0-81.0); PLATELET COUNT (AUTO) 292 K/uL (150-450); RED BLOOD CELL COUNT(AUTO) 2.96 MIL/uL (4.0-5.2); RED CELL DISTRIBUTION WIDTH 16.7 % (11.5-15.0); WHITE BLOOD COUNT (AUTO) 11.4 K/uL (4.3-11.0)
[2024-07-06 07:13] LABS: CALCIUM, SERUM 9.1 mg/dL (8.5-10.1); CREATININE 0.4 mg/dL (0.6-1.3); POTASSIUM 3.5 mmol/L (3.5-5.1)
[2024-07-06 08:00] VITALS: BP 148/97; TEMP 100; O2SAT 100
[2024-07-06 16:00] VITALS: BP 100/76; TEMP 98.6; O2SAT 98
[2024-07-06 20:00] VITALS: BP 114/71; TEMP 98.2; O2SAT 92
[2024-07-06] MEDS: QUETIAPINE FUMARATE 25 MG TABLET PO ONE (21:23)
[2024-07-07] VITALS (8 sets, daily range): BP systolic 94–135; BP diastolic 70–93; TEMP 97.7–98.2; O2SAT 94–100
[2024-07-07] MEDS: ACETAMINOPHEN 325 MG TABLET PO PRN (03:25)
[2024-07-07 05:12] LABS: FOLIC ACID > 20.0 ng/mL (>3.0)
[2024-07-07] MEDS ORDERED: KEY,NONCONTROL,TO KEEP IN PYXI 1 EA MC ONE ×2 (05:43→12:59)
[2024-07-07] MEDS: KETOROLAC TROMETHAMINE 10 MG TABLET PO PRN (17:29)
[2024-07-07] MEDS ORDERED: clonazePAM 0.5 MG TABLET PO PRN (18:00)
[2024-07-07] MEDS ORDERED: clonazePAM 1 MG TABLET PO SCH (21:00)
[2024-07-07] MEDS ORDERED: HYDROCODONE/APAP 5/325MG TABLET PO PRN (22:00)
[2024-07-08] VITALS: BP 142/97; TEMP 98.1; O2SAT 100
[2024-07-08] MEDS ORDERED: KEY,NONCONTROL,TO KEEP IN PYXI 1 EA MC ONE ×3 (01:06→13:03)
[2024-07-08 01:18] VITALS: BP 142/97; TEMP 98.7; O2SAT 100
[2024-07-08] MEDS: clonazePAM 0.5 MG TABLET PO SCH (06:44)
[2024-07-08 08:00] VITALS: BP 122/80; TEMP 98.2; O2SAT 99
[2024-07-08] MEDS ORDERED: DIPH50CA37 PO (12:25)
[2024-07-08] MEDS ORDERED: KETO10TA2 PO (12:25)
[2024-07-08] MEDS ORDERED: CLON0.5T4 PO ×3 (12:25)
[2024-07-08] MEDS ORDERED: clonazePAM 0.5 MG TABLET PO SCH (13:00)
[2024-07-08] MEDS ORDERED: PREGABALIN 25 MG CAPSULE PO SCH (17:00)
[2024-07-11 02:06] LABS: METHYLMALONIC ACID 118 nmol/L (0-378)
[2024-07-11 09:08] LABS: VITAMIN B1 THIAMINE,WB 139.9 nmol/L (66.5-200.0)
== END 2024-07-08 13:24 | disposition home or self-care (01) | DRG 896 ==
LOC: ER 20:11 → TELE 22:54
PROVIDERS: ADMIT Nurse Practitioner Acute Care; ATTEND Nurse Practitioner Acute Care
DX: F13.239 Sedative, hypnotic or anxiolytic dependence with withdrawal, unspecified (principal); G92.8 Other toxic encephalopathy; R56.9 Unspecified convulsions; G50.0 Trigeminal neuralgia; F41.9 Anxiety disorder, unspecified; F32.A Depression, unspecified; J45.909 Unspecified asthma, uncomplicated; Z86.711 Personal history of pulmonary embolism; Z79.01 Long term (current) use of anticoagulants; R51.9 Headache, unspecified; T42.4X5A Adverse effect of benzodiazepines, initial encounter; Y92.009 Unspecified place in unspecified non-institutional (private) residence as the place of occurrence of the external cause; Z79.899 Other long term (current) drug therapy
CPT/HCPCS: 36415; 70450-TC; 71045-TC; 80048-TC; 80076-TC; 80175; 82607-TC; 82962-TC; 83735-TC; 83921; 84100-TC; 84425; 84439-TC; 84443-TC; 85025-TC; 92526; 92611-TC; A4223; G0378; G0480; J1171; J2060; J2919; J7030; J7120; Q0163

== ENCOUNTER 2024-08-20 03:34 | Emergency (ER) | payer BC ==
[~2024-08-20] VITALS: Ht 167.6 cm; Wt 48.5 kg
[~2024-08-20 03:34] MED LIST changes: +APIX5TAB PO; +CLON0.5T4 PO; -CLON1TAB12 PO; +DIPH50CA37 PO; -HYDR-3976 PO; +KETO10TA2 PO; +LAMO25TA5 PO; -MORP15TA PO; +MORP30CP13 PO
[2024-08-20] MEDS ORDERED: ONDANSETRON HCL/PF 4 MG/2 ML VIAL ONE (04:35)
[2024-08-20] MEDS ORDERED: HYDROMORPHONE 1 MG/1 ML DISP.SYRIN ONE (04:35)
[2024-08-20] MEDS: ONDANSETRON HCL/PF 4 MG/2 ML VIAL IVP ONE (04:49)
[2024-08-20] MEDS: IV NS 0.9% 1,000 ML BAG IV ONE (04:49)
[2024-08-20] MEDS: HYDROMORPHONE INJ 2 MG/ML DISP.SYRIN IV ONE (04:49)
[2024-08-20] MEDS ORDERED: AMOX-430 PO (05:51)
[2024-08-20 05:58] VITALS: BP 138/72; TEMP 98; O2SAT 97
== END 2024-08-20 05:59 | disposition home or self-care (01) ==
LOC: ER 03:42
DX: R51.9 Headache, unspecified (principal); Z79.01 Long term (current) use of anticoagulants; Z79.899 Other long term (current) drug therapy; Z86.69 Personal history of other diseases of the nervous system and sense organs
CPT/HCPCS: 99284; 96374; 96361; 96375; J2405; J7030; J1171

== ENCOUNTER 2024-08-23 02:37 | Emergency (ER) | payer BC ==
[~2024-08-23] VITALS: Ht 165.1 cm; Wt 59.0 kg
[~2024-08-23 02:37] MED LIST changes: +AMOX-430 PO
[2024-08-23] MEDS ORDERED: ONDANSETRON HCL/PF 4 MG/2 ML VIAL ONE (03:20)
[2024-08-23] MEDS ORDERED: HYDROMORPHONE INJ 2 MG/ML DISP.SYRIN ONE ×2 (03:27→04:49)
[2024-08-23 03:28] LABS: BASOPHILS # (AUTO) 0.1 K/uL (0.0-0.2); BASOPHILS % (AUTO) 0.4 % (0.0-2.0); EOSINOPHILS # (AUTO) 0.1 K/uL (0.0-0.7); EOSINOPHILS % (AUTO) 0.5 % (0.0-6.0); HEMATOCRIT 34 % (33-45); HEMOGLOBIN 10.4 g/dL (11.5-14.8); LYMPHOCYTES # (AUTO) 0.4 K/uL (0.8-4.8); LYMPHOCYTES % (AUTO) 1.8 % (20.0-44.0); MEAN CORPUSCULAR HEMOGLOBIN 27 PG (26.0-33.0); MEAN CORPUSCULAR HGB CONC 31 g/dl (31.0-36.0); MEAN CORPUSCULAR VOLUME 88 fL (82-100); MONOCYTES # (AUTO) 0.8 K/uL (0.1-1.30); MONOCYTES % (AUTO) 3.9 % (2.0-12.0); NEUTROPHILS # (AUTO) 19.9 K/uL (1.8-8.9); NEUTROPHILS % (AUTO) 93.4 % (43.0-81.0); PLATELET COUNT (AUTO) 341 K/uL (150-450); RED BLOOD CELL COUNT(AUTO) 3.82 MIL/uL (4.0-5.2); WHITE BLOOD COUNT (AUTO) 21.3 K/uL (4.3-11.0)
[2024-08-23] MEDS: HYDROMORPHONE INJ 2 MG/ML DISP.SYRIN IV ONE (03:29)
[2024-08-23] MEDS: IV NS 0.9% 1,000 ML BAG IV ONE ×2 (03:29→05:07)
[2024-08-23] MEDS: ONDANSETRON HCL/PF 4 MG/2 ML VIAL IVP ONE (03:30)
[2024-08-23 03:42] LABS: D-DIMER 0.58 mg/L(FEU (0.17-0.50); INR 0.99 (0.91-1.10); PROTHROMBIN TIME 10.5 SECS (9.2-11.1)
[2024-08-23 03:50] LABS: ALANINE AMINOTRANSFERASE 17 U/L (12-78); ALBUMIN 3.7 g/dL (3.4-5.0); ALKALINE PHOSPHATASE 171 U/L (46-116); ASPARTATE AMINOTRANSFERASE 33 U/L (15-37); BILIRUBIN,DIRECT 0.3 mg/dL (0.0-0.2); BILIRUBIN,TOTAL 1.1 mg/dL (0.2-1.0); CALCIUM, SERUM 9.2 mg/dL (8.5-10.1); CARBON DIOXIDE 24 mmol/L (21-32); CHLORIDE 99 mmol/L (98-107); CREATININE 0.5 mg/dL (0.6-1.3); GLUCOSE 124 mg/dL (74-106); POTASSIUM 4.7 mmol/L (3.5-5.1); SODIUM SERUM 135 mmol/L (136-145); TOTAL PROTEIN, SERUM 7.9 g/dL (6.4-8.2); UREA NITROGEN, BLOOD 11 mg/dL (7-18)
[2024-08-23] MEDS ORDERED: IOHEXOL-350 100 ML VIAL IV ONE (03:57)
[2024-08-23] MEDS ORDERED: IV NS 0.9% 250 ML IV ONE (03:57)
[2024-08-23] MEDS ORDERED: CT SWABBABLE VALVE TRANS SET 1 EA INFUS.SET MC ONE (03:57)
[2024-08-23] MEDS: HYDROMORPHONE INJ 2 MG/ML DISP.SYRIN IV PRN (04:56)
[2024-08-23 07:13] VITALS: BP 103/59; TEMP 98.1; O2SAT 97
== END 2024-08-23 07:16 | disposition home or self-care (01) ==
LOC: ER 03:02
DX: G89.29 Other chronic pain (principal); D64.9 Anemia, unspecified; G50.0 Trigeminal neuralgia; R00.0 Tachycardia, unspecified; Z79.01 Long term (current) use of anticoagulants; Z79.891 Long term (current) use of opiate analgesic; Z79.899 Other long term (current) drug therapy; Z86.711 Personal history of pulmonary embolism
CPT/HCPCS: 99285; 96374; 71275; 96361; 71045; 96375; 93005 ×2; 85025; 80048; 80076; 85378; 36415; 84484 ×2; 85730; 96376; J1171 ×2; J2405; J7030 ×2; J7050; Q9967

== ENCOUNTER 2024-09-08 15:05 | Emergency (ER) | payer BC ==
[~2024-09-08] VITALS: Ht 165.1 cm; Wt 59.0 kg
[2024-09-08] MEDS ORDERED: KETOROLAC TROMETHAMINE 15 MG/ML VIAL ONE (15:57)
[2024-09-08] MEDS ORDERED: METOCLOPRAMIDE HCL 10 MG/2 ML VIAL ONE (15:57)
[2024-09-08] MEDS ORDERED: diphenhydrAMINE HCL 50 MG/ML VIAL ONE (15:57)
[2024-09-08] MEDS: diphenhydrAMINE HCL 50 MG/ML VIAL IV ONE (16:00)
[2024-09-08] MEDS: KETOROLAC TROMETHAMINE 15 MG/ML VIAL IV ONE (16:00)
[2024-09-08] MEDS: IV NS 0.9% 1,000 ML BAG IV ONE (16:00)
[2024-09-08] MEDS: METOCLOPRAMIDE HCL 10 MG/2 ML VIAL IV ONE (16:00)
[2024-09-08] MEDS ORDERED: ASPIRIN EC 325 MG TABLET.DR PO ONE (16:13)
[2024-09-08] MEDS ORDERED: NALO4SPR BNOSTRILS (17:08)
[2024-09-08] MEDS: LORAZEPAM INJ 2 MG/ML VIAL IV ONE (17:30)
[2024-09-08] MEDS ORDERED: LORAZEPAM INJ 2 MG/ML VIAL ONE (17:38)
[2024-09-08 18:12] VITALS: BP 121/81; TEMP 98.3; O2SAT 99
== END 2024-09-08 18:13 | disposition home or self-care (01) ==
LOC: ER 15:10
DX: R51.9 Headache, unspecified (principal); G89.29 Other chronic pain; G50.0 Trigeminal neuralgia; Z79.01 Long term (current) use of anticoagulants; Z79.899 Other long term (current) drug therapy
CPT/HCPCS: 99284; 96374; 96375; 96361; J1885; J2060; J1200; J2765; J7030

== ENCOUNTER 2024-11-01 01:53 | Emergency (ER) | payer BC ==
[~2024-11-01] VITALS: Ht 160 cm; Wt 68.0 kg
[~2024-11-01 01:53] MED LIST changes: +NALO4SPR BNOSTRILS
[2024-11-01] MEDS ORDERED: ONDANSETRON HCL/PF 4 MG/2 ML VIAL ONE (02:54)
[2024-11-01] MEDS ORDERED: KETOROLAC TROMETHAMINE INJ 30 MG/ML VIAL ONE (02:54)
[2024-11-01 02:59] LABS: PLATELET COUNT (AUTO) 389 K/uL (150-450); RED BLOOD CELL COUNT(AUTO) 4.00 MIL/uL (4.0-5.2); RED CELL DISTRIBUTION WIDTH 20.4 % (11.5-15.0); WHITE BLOOD COUNT (AUTO) 7.4 K/uL (4.3-11.0)
[2024-11-01] MEDS: KETOROLAC TROMETHAMINE INJ 30 MG/ML VIAL IV ONE (03:05)
[2024-11-01] MEDS: ONDANSETRON HCL/PF - ER 4 MG/2 ML VIAL IV ONE (03:05)
[2024-11-01 03:06] LABS: CALCIUM, SERUM 8.6 mg/dL (8.5-10.1); CREATININE 0.4 mg/dL (0.6-1.3); SODIUM SERUM 136.0 mmol/L (136-145); UREA NITROGEN, BLOOD 7.0 mg/dL (7-18)
[2024-11-01 03:18] LABS: ASPARTATE AMINOTRANSFERASE 66.0 U/L (15-37); NT-PRO BNP 73.0 pg/mL (0-125); TOTAL PROTEIN, SERUM 7.5 g/dL (6.4-8.2)
[2024-11-01] MEDS ORDERED: CT SWABBABLE VALVE TRANS SET 1 EA INFUS.SET MC ONE (04:20)
[2024-11-01] MEDS ORDERED: IOHEXOL-350 100 ML VIAL IV ONE (04:20)
[2024-11-01] MEDS ORDERED: IV NS 0.9% 250 ML IV ONE (04:20)
[2024-11-01 06:45] VITALS: BP 140/72; TEMP 98.6; O2SAT 98
== END 2024-11-01 07:03 | disposition home or self-care (01) ==
LOC: ER 01:56
DX: R07.89 Other chest pain (principal); G40.909 Epilepsy, unspecified, not intractable, without status epilepticus; R00.0 Tachycardia, unspecified; J45.909 Unspecified asthma, uncomplicated; Z79.01 Long term (current) use of anticoagulants; Z79.899 Other long term (current) drug therapy
CPT/HCPCS: 99285; 96374; 71275; 96375; 71045; 93005; 85025; 85378; 36415; 80053; 84484 ×2; 83880; J1885; J1200; J2405 ×2; J7050; Q9967

== ENCOUNTER 2024-11-22 12:09 | Emergency (ER) | payer BC ==
[~2024-11-22] VITALS: Ht 160 cm; Wt 67.6 kg
[2024-11-22 12:26] VITALS: TEMP 98
[2024-11-22 12:49] LABS: PLATELET COUNT (AUTO) 486 K/uL (150-450); RED BLOOD CELL COUNT(AUTO) 3.82 MIL/uL (4.0-5.2); RED CELL DISTRIBUTION WIDTH 21.2 % (11.5-15.0); WHITE BLOOD COUNT (AUTO) 14.9 K/uL (4.3-11.0)
[2024-11-22 13:00] LABS: CALCIUM, SERUM 9.1 mg/dL (8.5-10.1); CREATININE 0.8 mg/dL (0.6-1.3); SODIUM SERUM 133 mmol/L (136-145); UREA NITROGEN, BLOOD 6 mg/dL (7-18)
[2024-11-22 16:38] VITALS: BP 139/87; O2SAT 98
[2024-11-23] MEDS ORDERED: CEPH500C2 PO (03:38)
== END 2024-11-22 16:39 | disposition home or self-care (01) ==
LOC: ER 12:42
DX: G89.4 Chronic pain syndrome (principal); R00.2 Palpitations; M79.7 Fibromyalgia; Z79.01 Long term (current) use of anticoagulants; Z79.891 Long term (current) use of opiate analgesic; Z79.899 Other long term (current) drug therapy
CPT/HCPCS: 36415; 71045-TC; 80048-TC; 84484-TC; 85025-TC

== ENCOUNTER 2024-11-22 23:54 | Emergency (ER) | payer BC ==
[~2024-11-22] VITALS: Ht 160 cm; Wt 68.0 kg
[2024-11-23 00:28] VITALS: TEMP 98
[2024-11-23 02:04] LABS: PLATELET COUNT (AUTO) 544 K/uL (150-450); RED BLOOD CELL COUNT(AUTO) 3.73 MIL/uL (4.0-5.2); RED CELL DISTRIBUTION WIDTH 21.9 % (11.5-15.0); WHITE BLOOD COUNT (AUTO) 17.8 K/uL (4.3-11.0)
[2024-11-23 02:17] LABS: ASPARTATE AMINOTRANSFERASE 19.0 U/L (15-37); CALCIUM, SERUM 8.9 mg/dL (8.5-10.1); CREATININE 0.5 mg/dL (0.6-1.3); INR 1.07 (0.91-1.10); SODIUM SERUM 136.0 mmol/L (136-145); TOTAL PROTEIN, SERUM 7.3 g/dL (6.4-8.2); UREA NITROGEN, BLOOD 5.0 mg/dL (7-18)
[2024-11-23] MEDS ORDERED: PROCHLORPERAZINE EDISYLATE 10 MG/2 ML VIAL ONE (02:27)
[2024-11-23] MEDS ORDERED: MORPHINE SULFATE INJ 4 MG/ML DISP.SYRIN ONE (02:28)
[2024-11-23] MEDS ORDERED: ACETAMINOPHEN ES 500 MG TABLET ONE (02:28)
[2024-11-23] MEDS: IV NS 0.9% 1,000 ML BAG IV ONE (02:47)
[2024-11-23] MEDS: ACETAMINOPHEN ES 500 MG TABLET PO ONE (02:48)
[2024-11-23] MEDS: MORPHINE SULFATE INJ 2 MG/ML DISP.SYRIN IV ONE (02:48)
[2024-11-23] MEDS: PROCHLORPERAZINE EDISYLATE 10 MG/2 ML VIAL IVP ONE (02:48)
[2024-11-23 03:21] LABS: APPEARANCE,URINE CLOUDY (CLEAR); BLOOD, URINE TRACE-INTA Ery/uL (NEGATIVE); LEUKOCYTE ESTERASE ,URINE 2+ (NEGATIVE); NITRITE, URINE POSITIVE (NEGATIVE); UGLUCOSE NEGATIVE (NEGATIVE)
[2024-11-23 03:38] LABS: ADD URINE CULTURE YES; SQUAMOUS EPITHELIAL CELL,UR Rare /HPF (None Seen)
[2024-11-23] MEDS ORDERED: CEPH500C2 PO (03:38)
[2024-11-23] MEDS: CEFTRIAXONE 1GM BAG (ER ONLY) 1 GM/50 ML PIGGYBACK IV ONE (03:54)
[2024-11-23 04:32] VITALS: BP 91/65; O2SAT 96
== END 2024-11-23 04:33 | disposition home or self-care (01) ==
LOC: ER 11-23
DX: G50.0 Trigeminal neuralgia (principal); N39.0 Urinary tract infection, site not specified; G89.29 Other chronic pain; R00.0 Tachycardia, unspecified; R11.10 Vomiting, unspecified; Z79.01 Long term (current) use of anticoagulants; Z79.899 Other long term (current) drug therapy
CPT/HCPCS: 99285; 96365; 96375; 96361; 85025; 80048; 87086; 80076; 81001; 36415; 85730; J0780; J1200; J2270; J7030; J0696

== ENCOUNTER 2024-12-29 14:38 | Inpatient (IN) | payer BC ==
[~2024-12-29] VITALS: Ht 167.6 cm; Wt 47.6 kg
[~2024-12-29 14:38] MED LIST changes: +CEPH500C2 PO
[2024-12-29] MEDS: IV NS 0.9% 1,000 ML BAG IV ONE ×2 (15:00→16:00)
[2024-12-29 15:42] LABS: PLATELET COUNT (AUTO) 492 K/uL (150-450); RED BLOOD CELL COUNT(AUTO) 4.33 MIL/uL (4.0-5.2); RED CELL DISTRIBUTION WIDTH 20.1 % (11.5-15.0); WHITE BLOOD COUNT (AUTO) 25.6 K/uL (4.3-11.0)
[2024-12-29 15:53] LABS: CALCIUM, SERUM 8.7 mg/dL (8.5-10.1); CREATININE 0.5 mg/dL (0.6-1.3); SODIUM SERUM 143 mmol/L (136-145); UREA NITROGEN, BLOOD 8 mg/dL (7-18)
[2024-12-29 16:10] LABS: LACTIC ACID 2.7 mmol/L (0.4-2.0)
[2024-12-29] MEDS ORDERED: ACETAMINOPHEN ES 500 MG TABLET ONE (16:11)
[2024-12-29 16:17] LABS: APPEARANCE,URINE CLEAR (CLEAR); BLOOD, URINE NEGATIVE Ery/uL (NEGATIVE); LEUKOCYTE ESTERASE ,URINE NEGATIVE (NEGATIVE); NITRITE, URINE NEGATIVE (NEGATIVE); UGLUCOSE NEGATIVE (NEGATIVE)
[2024-12-29] MEDS: CEFEPIME 1 GM in IV D5W 50 ML IV ONE (16:30)
[2024-12-29 16:33] LABS: BAND % (MANUAL) 2 % (0.0-5.0); BASOPHILS % (MANUAL) 0 % (0.0-2.0); EOSINOPHILS % (MANUAL) 0 % (0-4); LYMPHOCYTES % (MANUAL) 2 % (16-48); MONOCYTES % (MANUAL) 3 % (0-11.0); NEUTROPHILS % (MANUAL) 93 (42-76); PLATELET ESTIMATE INCREASED
[2024-12-29] MEDS: ACETAMINOPHEN ES 500 MG TABLET PO ONE (16:37)
[2024-12-29] MEDS ORDERED: CLON1TAB12 PO (16:43)
[2024-12-29] MEDS ORDERED: HYDR-3976 PO (16:43)
[2024-12-29] MEDS ORDERED: TOPI50TA24 PO (16:43)
[2024-12-29] MEDS ORDERED: LIDOCAINE HCL TP (16:43)
[2024-12-29] MEDS ORDERED: PREG100C PO (16:43)
[2024-12-29] MEDS ORDERED: BACL20TA PO (16:43)
[2024-12-29] MEDS ORDERED: MORP30TA7 PO (16:43)
[2024-12-29] MEDS ORDERED: SERT50TA PO (16:43)
[2024-12-29 16:51] LABS: ALCOHOL, BLOOD < 3 mg/dL (0-10)
[2024-12-29] MEDS: VANCOMYCIN 1 GM in IV D5W 250 ML IV ONE (17:00)
[2024-12-29] MEDS: KETOROLAC TROMETHAMINE 15 MG/ML VIAL IV STA (17:17)
[2024-12-29 17:29] LABS: AMPHETAMINE, URINE NEGATIVE (NEGATIVE); BARBITURATE, URINE NEGATIVE (NEGATIVE); COCCAINE, URINE NEGATIVE (NEGATIVE)
[2024-12-29] MEDS ORDERED: MAGNESIUM HYDROXIDE 30 ML UDC PO PRN (17:30)
[2024-12-29] MEDS ORDERED: ENOXAPARIN SODIUM 40 MG/0.4 ML DISP.SYRIN SQ SCH (17:30)
[2024-12-29] MEDS ORDERED: ZOLPIDEM TARTRATE 5 MG TABLET PO PRN (17:30)
[2024-12-29] MEDS ORDERED: ACETAMINOPHEN 325 MG TABLET PO PRN (17:30)
[2024-12-29] MEDS ORDERED: MAG HYDROX/AL HYDROX/SIMETH 30 ML UDC PO PRN (17:30)
[2024-12-29] MEDS ORDERED: Z GUARD REMEDY 4 OZ OINT TP PRN (17:30)
[2024-12-29] MEDS ORDERED: HYDROCODONE/APAP 5/325MG TABLET PO PRN (17:30)
[2024-12-29 17:32] LABS: BENZODIAZEPINE, URINE POSITIVE (NEGATIVE); CANNABINOID, URINE POSITIVE (NEGATIVE); OPIATE, URINE POSITIVE (NEGATIVE)
[2024-12-29] MEDS ORDERED: KETOROLAC TROMETHAMINE 15 MG/ML VIAL ONE (17:37)
[2024-12-29 20:00] VITALS: BP 93/55; TEMP 98.1; O2SAT 94
[2024-12-29] MEDS ORDERED: CEFEPIME 1 GM in IV D5W 50 ML IV SCH (20:30)
[2024-12-29] MEDS ORDERED: DOSING PER PHARMACY-VANCOMYCIN IV XX PRN (20:30)
[2024-12-29 20:31] LABS: LACTIC ACID REFLEX 1.8 mmol/L (0.4-1.9)
[2024-12-29] MEDS: PREGABALIN 100 MG CAPSULE PO SCH (20:34)
[2024-12-29] MEDS: LORAZEPAM 0.5 MG TABLET PO PRN (20:34)
[2024-12-29] MEDS: IV NS 0.9% 1,000 ML IV PRN (20:38)
[2024-12-29] MEDS: HYDROCODONE/APAP 10/325MG TABLET PO PRN (21:23)
[2024-12-30] VITALS (8 sets, daily range): BP systolic 80–119; BP diastolic 43–76; TEMP 97.5–99; O2SAT 80–100
[2024-12-30] MEDS ORDERED: VANCOMYCIN 1 GM /D5W 250 ML PB IV ONE (00:44)
[2024-12-30] MEDS: VANCOMYCIN 750 MG in IV D5W 250 ML IV SCH (00:59)
[2024-12-30] MEDS ORDERED: CEFEPIME 1 GM VIAL ONE (01:22)
[2024-12-30] MEDS: IV NS 0.9% 500 ML IV ONE (01:51)
[2024-12-30] MEDS: CEFEPIME 2 GM in IV D5W 100 ML IV SCH (03:20)
[2024-12-30 07:58] LABS: CALCIUM, SERUM 8.3 mg/dL (8.5-10.1); CREATININE 0.6 mg/dL (0.6-1.3); PHOSPHORUS 2.3 mg/dL (2.5-4.9); SODIUM SERUM 138.0 mmol/L (136-145); UREA NITROGEN, BLOOD 6.0 mg/dL (7-18)
[2024-12-30 08:07] LABS: LDL 75.0 mg/dL (0-99)
[2024-12-30] MEDS: POTASSIUM CHLORIDE 20 MEQ TAB.PRT.SR PO SCH (09:50)
[2024-12-30] MEDS: PANTOPRAZOLE 40 MG TABLET.DR PO SCH (09:50)
[2024-12-30] MEDS: SERTRALINE HCL 50 MG TABLET PO SCH (09:51)
[2024-12-30] MEDS: TOPIRAMATE 25 MG TABLET PO SCH (09:55)
[2024-12-30 09:56] LABS: PLATELET COUNT (AUTO) 323 K/uL (150-450); RED BLOOD CELL COUNT(AUTO) 3.39 MIL/uL (4.0-5.2); RED CELL DISTRIBUTION WIDTH 20.2 % (11.5-15.0); WHITE BLOOD COUNT (AUTO) 11.8 K/uL (4.3-11.0)
[2024-12-30] MEDS: APIXABAN 5 MG TABLET PO SCH (10:22)
[2024-12-30] MEDS: BACLOFEN (10 MG) 10 MG TABLET PO SCH (12:35)
[2024-12-30] MEDS: CEFTRIAXONE 2 G in IV D5W 100 ML IV SCH (14:07)
[2024-12-30] MEDS: K PHOS NEUTRAL 250 MG TABLET PO ONE (18:05)
[2024-12-30] MEDS: MORPHINE SULFATE INJ 2 MG/ML DISP.SYRIN IV PRN (23:28)
[2024-12-31] VITALS (7 sets, daily range): BP systolic 104–118; BP diastolic 67–78; TEMP 97.6–98.2; O2SAT 92–100
[2024-12-31] MEDS: ENSURE ENLIVE 237 ML LIQUID (VANILLA) PO SCH (13:00)
[2024-12-31 15:49] LABS: ASPARTATE AMINOTRANSFERASE 21.0 U/L (15-37); CALCIUM, SERUM 8.6 mg/dL (8.5-10.1); CREATININE 0.5 mg/dL (0.6-1.3); PHOSPHORUS 2.7 mg/dL (2.5-4.9); SODIUM SERUM 140.0 mmol/L (136-145); TOTAL PROTEIN, SERUM 6.6 g/dL (6.4-8.2); UREA NITROGEN, BLOOD 2.0 mg/dL (7-18)
[2024-12-31] MEDS: VANCOMYCIN HCL 125 MG/2.5 ML ORAL.SUSP PO SCH (18:31)
[2024-12-31] MEDS: ONDANSETRON HCL/PF 4 MG/2 ML VIAL IVP PRN (20:37)
[2025-01-01] VITALS: BP 114/62; TEMP 97.7; O2SAT 99
[2025-01-01 00:16] LABS: PLATELET COUNT (AUTO) 291 K/uL (150-450); RED BLOOD CELL COUNT(AUTO) 3.13 MIL/uL (4.0-5.2); RED CELL DISTRIBUTION WIDTH 20.1 % (11.5-15.0); WHITE BLOOD COUNT (AUTO) 6.9 K/uL (4.3-11.0)
[2025-01-01] MEDS: POTASSIUM CL. PREMIX PERIPHER. 50 ML IV SCH (00:47)
[2025-01-01] MEDS: POTASSIUM CHLORIDE 20 MEQ POWDER PACKET PO ONE (00:48)
[2025-01-01 04:00] VITALS: BP 104/63; TEMP 98.2; O2SAT 97
[2025-01-01 08:21] LABS: CALCIUM, SERUM 8.7 mg/dL (8.5-10.1); CREATININE 0.6 mg/dL (0.6-1.3); SODIUM SERUM 143.0 mmol/L (136-145); UREA NITROGEN, BLOOD 2.0 mg/dL (7-18)
[2025-01-01 08:59] VITALS: BP 111/70; TEMP 98.2; O2SAT 97
[2025-01-01] MEDS ORDERED: POTA20TA83 PO (12:25)
[2025-01-01] MEDS ORDERED: VANC250C12 PO (12:25)
[2025-01-01] MEDS: POTASSIUM CHLORIDE 20 MEQ TAB.PRT.SR PO ONE ×2 (13:22→13:28)
== END 2025-01-01 18:12 | disposition home or self-care (01) | DRG 917 ==
LOC: ER 14:40 → TELE 17:13
DX: T40.2X1A Poisoning by other opioids, accidental (unintentional), initial encounter (principal); A41.4 Sepsis due to anaerobes; G92.8 Other toxic encephalopathy; A04.72 Enterocolitis due to Clostridium difficile, not specified as recurrent; T42.4X1A Poisoning by benzodiazepines, accidental (unintentional), initial encounter; G50.0 Trigeminal neuralgia; G89.29 Other chronic pain; J45.909 Unspecified asthma, uncomplicated; E87.6 Hypokalemia; Z79.01 Long term (current) use of anticoagulants; Z79.891 Long term (current) use of opiate analgesic; Z86.711 Personal history of pulmonary embolism; F41.9 Anxiety disorder, unspecified; F32.A Depression, unspecified; Y92.009 Unspecified place in unspecified non-institutional (private) residence as the place of occurrence of the external cause
CPT/HCPCS: 36415; 70450-TC; 71045-TC; 80048-TC; 80053-TC; 80061-TC; 80202-TC; 82247-TC; 82248-TC; 83605-TC; 83735-TC; 84100-TC; 84443-TC; 84484-TC; 85025-TC; 85027-TC; 87040-TC; 87081-TC; 87086-TC; A4223; G0378; G0480; J0692; J0696; J1885; J2270; J2405; J3373; J3374; J3480; J7030; J7040; J7060; Q0163